=== PATIENT | female | born 1950 | race Caucasian/White ===

== ENCOUNTER 2018-09-02 19:37 | Inpatient (IN) | payer MEDICARE, OTHER ==
[~2018-09-02] VITALS: Ht 167.6 cm; Wt 133.0 kg
[~2018-09-02 19:37] MED LIST: CRESTOR40 MG PO; LOSA100T14 PO; METO-239 PO; PARO20TA3 PO
[2018-09-02 20:10] LABS: BASO # 0.1 x10^3/uL (0.0-0.2); BASO % 1 % (0-3); EOS # 0.2 x10^3/uL (0.0-0.7); EOS % 3 % (0-3); HEMATOCRIT 36.6 % (36.0-47.0); HEMOGLOBIN 11.7 g/dL (12.0-15.5); LYMPH # 1.7 x10^3/uL (1.0-4.8); LYMPH % 19 % (24-48); MEAN CORPUSCULAR HEMOGLOBIN 25 pg (25-35); MEAN CORPUSCULAR HGB CONC 32 g/dL (31-37); MEAN CORPUSCULAR VOLUME 78 fL (79-100); MONO # 0.5 x10^3/uL (0.0-1.1); MONO % 6 % (0-9); NEUT # 6.3 x10^3uL (1.8-7.7); NEUT % 71 % (31-73); PLATELET COUNT 212 x10^3/uL (140-400); RED BLOOD COUNT 4.71 x10^6/uL (3.50-5.40); RED CELL DISTRIBUTION WIDTH 16.8 % (11.5-14.5); WHITE BLOOD COUNT 8.9 x10^3/uL (4.0-11.0)
[2018-09-02 20:24] LABS: CALCIUM 9.3 mg/dL (8.5-10.1); GFR 55.3; POTASSIUM 3.8 mmol/L (3.5-5.1)
[2018-09-02 20:30] LABS: ALBUMIN 3.5 g/dL (3.4-5.0); ALBUMIN/GLOBULIN RATIO 0.8 (1.0-1.7); TOTAL BILIRUBIN 0.5 mg/dL (0.2-1.0); TOTAL PROTEIN 8.1 g/dL (6.4-8.2)
--- NOTE | 2018-09-02 20:49 | PHYS DOC ---
Past Medical History Past Medical History: Anxiety, High Cholesterol, Hypertension Past Surgical History: Hysterectomy, Other Additional Past Surgical Histo: BLADDER REPAIR, LAP BAND SURGERY Alcohol Use: None Drug Use: None Adult General Chief Complaint Chief Complaint: SHORTNESS OF BREATH [facility] HPI Patient is a 68-year-old female who presents with complaint of shortness of breath that she states has been present for probably the last 3 months but states that over the last week shortness of breath is gotten much worse so that with minimal walking she is very out of breath. She also indicates that she is out of breath just with talking. She denies chest pain. Patient does admit to history of PE in the past and states that she had a saddle embolus back in 2014. She had been on blood thinners for 2 years and had discontinued in 2016. She states that she followed up with Dr. Sadler yesterday and was scheduled for a PE study today. Patient was over in outpatient radiology and was instructed to come to the emergency room. Review of Systems Review of Systems Constitutional: Denies fever or chills [] Respiratory: Complains of cough and shortness of breath [] Cardiovascular: No additional information not addressed in HPI [] GI: Denies abdominal pain, nausea, vomiting or diarrhea [] Musculoskeletal: Denies back pain or joint pain [] Integument: Denies rash or skin lesions [] Neurologic: Denies headache, focal weakness or sensory changes [] All other systems were reviewed and found to be within normal limits, except as documented in this note. Current Medications Current Medications Current Medications Medications (Trade) Dose Ordered Sig/Regina Start Time Stop Time Status Last Admin Dose Admin Enoxaparin Sodium (Lovenox 150mg Syringe) 130 mg 1X ONCE 09/02/18 20:00 09/02/18 20:01 DC 09/02/18 20:37 130 MG Allergies Allergies Allergies Coded Allergies Type Severity Reaction Last Updated Verified Sulfa (Sulfonamide Antibiotics) Allergy Intermediate 11/26/14 Yes Tetanus Vaccines and Toxoid Allergy Intermediate 11/26/14 Yes latex Allergy Intermediate 11/26/14 Yes Physical Exam Physical Exam Constitutional: Well developed, well nourished, no acute distress, non-toxic appearance. [] HENT: Normocephalic, atraumatic, bilateral external ears normal, oropharynx moist, no oral exudates, nose normal. [] Eyes: PERRLA, EOMI, conjunctiva normal, no discharge. [] Neck: Normal range of motion, no tenderness, supple, no stridor. [] Cardiovascular: Ishaan tachycardic rate with regular rhythm[] Lungs & Thorax: Bilateral breath sounds clear to auscultation [] Abdomen: Bowel sounds normal, soft, no tenderness. [] Skin: Warm, dry, no erythema, no rash. [] Extremities: No tenderness, no cyanosis, no clubbing, ROM intact. [] Neurologic: Alert and oriented X 3, no focal deficits noted. [] Current Patient Data Lab Values Laboratory Tests Test 09/02/18 20:02 White Blood Count 8.9 x10^3/uL (4.0-11.0) Red Blood Count 4.71 x10^6/uL (3.50-5.40) Hemoglobin 11.7 g/dL (12.0-15.5) L Hematocrit 36.6 % (36.0-47.0) Mean Corpuscular Volume 78 fL (79-100) L Mean Corpuscular Hemoglobin 25 pg (25-35) Mean Corpuscular Hemoglobin Concent 32 g/dL (31-37) Red Cell Distribution Width 16.8 % (11.5-14.5) H Platelet Count 212 x10^3/uL (140-400) Neutrophils (%) (Auto) 71 % (31-73) Lymphocytes (%) (Auto) 19 % (24-48) L Monocytes (%) (Auto) 6 % (0-9) Eosinophils (%) (Auto) 3 % (0-3) Basophils (%) (Auto) 1 % (0-3) Neutrophils # (Auto) 6.3 x10^3uL (1.8-7.7) Lymphocytes # (Auto) 1.7 x10^3/uL (1.0-4.8) Monocytes # (Auto) 0.5 x10^3/uL (0.0-1.1) Eosinophils # (Auto) 0.2 x10^3/uL (0.0-0.7) Basophils # (Auto) 0.1 x10^3/uL (0.0-0.2) Sodium Level 142 mmol/L (136-145) Potassium Level 3.8 mmol/L (3.5-5.1) Chloride Level 105 mmol/L (98-107) Carbon Dioxide Level 25 mmol/L (21-32) Anion Gap 12 (6-14) Blood Urea Nitrogen 15 mg/dL (7-20) Creatinine 1.0 mg/dL (0.6-1.0) Estimated GFR (Cockcroft-Gault) 55.3 BUN/Creatinine Ratio 15 (6-20) Glucose Level 95 mg/dL (70-99) Calcium Level 9.3 mg/dL (8.5-10.1) Total Bilirubin 0.5 mg/dL (0.2-1.0) Aspartate Amino Transferase (AST) 30 U/L (15-37) Alanine Aminotransferase (ALT) 22 U/L (14-59) Alkaline Phosphatase 218 U/L (46-116) H Troponin I Quantitative 0.081 ng/mL (0.000-0.055) AY-Lcc-C-Type Natriuretic Peptide 1815 pg/mL (0-124) H Total Protein 8.1 g/dL (6.4-8.2) Albumin 3.5 g/dL (3.4-5.0) Albumin/Globulin Ratio 0.8 (1.0-1.7) L Laboratory Tests 09/02/18 20:02 Laboratory Tests 09/02/18 20:02 EKG EKG [] Interpretation Time: EKG demonstrates sinus tachycardia with rate of 101. Radiology/Procedures Radiology/Procedures [] Impressions: PROCEDURE: CT ANGIOGRAPHY CHEST Chest CTA History: Shortness of air, chest pain, history of pulmonary embolism Technique: After bolus of intravenous contrast, CT imaging was performed of the chest. Multiplanar reconstruction images to include MIP reconstruction images are submitted. Exposure: One or more of the following individualized dose reduction techniques were utilized for this examination: 1. Automated exposure control 2. Adjustment of the mA and/or kV according to patient size 3. Use of iterative reconstruction technique. Comparison: November 27, 2014 Findings: [ ] There were pulmonary emboli bilaterally on the previous exam. On this exam, there are fairly prominent left pulmonary emboli in the upper and lower lobes, also some tiny foci of the right lower and upper lobe segment subsegmental branches. Previously seen sagittal embolism is no longer visualized. Previously there were larger right pulmonary emboli no longer visualized. There is emphysema. There is no pleural or pericardial effusion or significant infiltrate. Heart is enlarged. There is gastric band. There is 4.1 cm lesion of the visualized left kidney present previously although not fully included, internal density measurements not of a simple cyst at 31 Hounsfield units, likely somewhat larger as previously estimated 3.6 cm. There is small hiatal hernia, mild wall thickening of distal esophagus. There is multilevel thoracic spondylosis. IMPRESSION: 1. There are left greater than right pulmonary emboli. There were pulmonary emboli bilaterally on previous 2015 exam although clot burden on the right significantly less than previously. The larger left emboli may be more acute/recurrent. 2. There is lesion of the left kidney not fully included although probably larger than previous 2015 exam for which ultrasound exam recommended as solid mass not excluded. 3. There is emphysema. FOR INTERNAL CODING PURPOSES Critical result: Findings discussed with Dr. Contreras at 09/02/2018 7:16 PM. RESULT CODE: (C) Electronically signed by: Faheem Prather MD (09/02/2018 7:16 PM) [facility] Course & Med Decision Making Course & Med Decision Making Pertinent Labs and Imaging studies reviewed. (See chart for details) [] Dragon Disclaimer Dragon Disclaimer This electronic medical record was generated, in whole or in part, using a voice recognition dictation system. Departure Departure Impression: Primary Impression: Pulmonary embolism Disposition: 09 ADMITTED INPATIENT Admitting Physician: Dennis Vásquez Condition: GOOD Referrals: ALIDA LONDONO MD (PCP) Problem Qualifiers Primary Impression: Pulmonary embolism Pulmonary embolism type: other Chronicity: acute Acute cor pulmonale presence: without acute cor pulmonale Qualified Codes: I26.99 - Other pulmonary embolism without acute cor pulmonale JOSE ANGEL KEATING Jr. DO Sep 02, 2018 20:49
[2018-09-02] MEDS ORDERED: fentaNYL PF VIAL 100 MCG/2 ML VIAL IV PRN (21:00)
[2018-09-02] MEDS ORDERED: ACETAMINOPHEN 325 MG TABLET. PO PRN (21:00)
[2018-09-02] MEDS ORDERED: ONDANSETRON PF 4 MG/2 ML VIAL. IV PRN (21:00)
--- NOTE | 2018-09-02 21:45 | NUR ---
PT ARRIVED FROM ER WITH STAFF X1. ON GURNEY TO ROOM 210. PT INDEPENDENT. ON BEDREST PER ORDERS. AND TO USE BEDPAN. 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 GAVE AND EXPLAINED PMC BOOKLETS. DOCUMENTED BELONGINGS IN THE EMR. PT DENIED MEDS. LATER FOUND OUT SHE USES A CREAM ON HER PSORIASES BUT DOESNT KNOW THE NAME OF IT. WENT OVER HISTORY AND ASSESSMENT COMPLETED. PT HAS PSORASIS IN MULTIPLE PLACES. BILATERAL ELBOWS PICTURES WERE TAKEN DUE TO SKIN WAS PEELED OFF IN ER SHE SAID SHE WAS NERVOUS. SHE ALSO HAS ON SCALP, IN BOTH EARS AND ON HER BUTTUCKS OF WHICH SHE WILL NOT LET THE BUTTUCKS BE SEEN. LCRN
[2018-09-02 22:58] VITALS: BP 145/84
[2018-09-03 02:52] VITALS: BP 134/78
[2018-09-03 07:02] VITALS: BP 154/86
--- NOTE | 2018-09-03 08:43 | EKG ---
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
--- NOTE | 2018-09-03 10:25 | PDOC1 ---
History and Physical Date of Admission Date of Admission DATE: 09/03/18 TIME: 10:23 Identification/Chief Complaint Chief Complaint shortness of breath that she states has been present for probably the last 3 months but states that over the last week shortness of breath is gotten much worse so that with walking she is very out of breath. . She denies chest pain. Patient does admit to history of PE , had a saddle embolus back in 2015. Past Medical History Cardiovascular: HTN, Hyperlipidemia Pulmonary: No pertinent hx CENTRAL NERVOUS SYSTEM: Other GI: No pertinent hx Heme/Onc: No pertinent hx Hepatobiliary: No pertinent hx Psych: Anxiety Musculoskeletal: Osteoarthritis Rheumatologic: No pertinent hx Infectious disease: No pertinent hx Renal/: Urinary Incontinence Endocrine: No pertinent hx Past Surgical History Past Surgical History: Other Family History Family History: Coronary Artery Disease, Other (BLLOD CLOTS, NIECE) Social History Smoke: No ALCOHOL: none Drugs: None Current Problem List Problem List Problems Medical Problems: (1) Pulmonary embolism Status: Acute Current Medications Current Medications Current Medications Enoxaparin Sodium (Lovenox 150mg Syringe) 130 mg 1X ONCE SQ Last administered on 09/02/18at 20:37; Start 09/02/18 at 20:00; Stop 09/02/18 at 20:01; Status DC Ondansetron HCl (Zofran) 4 mg PRN Q8HRS PRN IV NAUSEA/VOMITING; Start 09/02/18 at 21:00; Stop 09/03/18 at 20:59 Fentanyl Citrate (Fentanyl 2ml Vial) 25 mcg PRN Q2HRS PRN IV PAIN; Start at 21:00 Acetaminophen (Tylenol) 650 mg PRN Q4HRS PRN PO FEVER; Start 09/02/18 at 21:00 ; Stop 09/03/18 at 20:59 Apixaban (Eliquis) 10 mg BID PO ; Start 09/03/18 at 11:00; Stop 09/09/18 at 21: 01 Apixaban (Eliquis) 5 mg BID PO ; Start 09/10/18 at 09:00 Active Scripts Active Allergies Allergies: Coded Allergies: Sulfa (Sulfonamide Antibiotics) (Verified Allergy, Intermediate, 11/26/14) Tetanus Vaccines and Toxoid (Verified Allergy, Intermediate, 11/26/14) latex (Verified Allergy, Intermediate, 11/26/14) ROS Review of System Review of Systems Review of Systems Constitutional: Denies fever or chills [] Respiratory: Complains of cough and shortness of breath [] Cardiovascular: No additional information not addressed in HPI [] GI: Denies abdominal pain, nausea, vomiting or diarrhea [] Musculoskeletal: Denies back pain or joint pain [] Integument: Denies rash or skin lesions [] Neurologic: Denies headache, focal weakness or sensory changes [] 14 pt systems were reviewed and found to be within normal limits, except as documented . General: YES: Fatigue Respiratory: YES: Shortness of breath, SOB with excertion Neurological: No Behavorial Changes, No Bowel/Bladder ControlChng, No Confusion , No Dizziness, No Gait Disturbance, No Headaches, No Impaired Coord/balance, No Memory Loss, No Numbness/Tingling, No Seizures, No Speech Problems, No Tremors, No Visual Changes, No Weakness, No Other Physical Exam Physical Exam Physical Exam Physical Exam Constitutional: Well developed, well nourished, no acute distress, non-toxic appearance. [] HENT: Normocephalic, atraumatic, bilateral external ears normal, oropharynx moist, no oral exudates, nose normal. [] Eyes: PERRLA, EOMI, conjunctiva normal, no discharge. [] Neck: Normal range of motion, no tenderness, supple, no stridor. [] Cardiovascular: Ishaan tachycardic rate with regular rhythm[] Lungs & Thorax: Bilateral breath sounds clear to auscultation [] Abdomen: Bowel sounds normal, soft, no tenderness. [] Skin: Warm, dry, no erythema, no rash. [] Extremities: No tenderness, no cyanosis, no clubbing, ROM intact. [] Neurologic: Alert and oriented X 3, no focal deficits noted. [] General: Alert, Oriented X3, Cooperative, No acute distress, mild distress HEENT: Atraumatic, EOMI Lungs: Clear to auscultation, Normal air movement Heart: RRR Breasts: Not examined Abdomen: Normal bowel sounds, Soft Rectal Exam: not examined Extremities: No edema Neuro: Normal speech, Cranial nerves 3-12 NL Psych/Mental Status: Mood NL Vitals Vitals Vital Signs Date Time Temp Pulse Resp B/P (MAP) Pulse Ox O2 Delivery O2 Flow Rate FiO2 09/03/18 08:25 Nasal Cannula 2.0 09/03/18 07:02 97.9 89 17 154/86 (108) 97.9 09/03/18 02:52 96 Labs Labs Laboratory Tests Test 09/02/18 20:02 09/03/18 00:30 09/03/18 03:30 White Blood Count 8.9 x10^3/uL (4.0-11.0) Red Blood Count 4.71 x10^6/uL (3.50-5.40) Hemoglobin 11.7 g/dL (12.0-15.5) Hematocrit 36.6 % (36.0-47.0) Mean Corpuscular Volume 78 fL (79-100) Mean Corpuscular Hemoglobin 25 pg (25-35) Mean Corpuscular Hemoglobin Concent 32 g/dL (31-37) Red Cell Distribution Width 16.8 % (11.5-14.5) Platelet Count 212 x10^3/uL (140-400) Neutrophils (%) (Auto) 71 % (31-73) Lymphocytes (%) (Auto) 19 % (24-48) Monocytes (%) (Auto) 6 % (0-9) Eosinophils (%) (Auto) 3 % (0-3) Basophils (%) (Auto) 1 % (0-3) Neutrophils # (Auto) 6.3 x10^3uL (1.8-7.7) Lymphocytes # (Auto) 1.7 x10^3/uL (1.0-4.8) Monocytes # (Auto) 0.5 x10^3/uL (0.0-1.1) Eosinophils # (Auto) 0.2 x10^3/uL (0.0-0.7) Basophils # (Auto) 0.1 x10^3/uL (0.0-0.2) D-Dimer (Rolanda) 4.74 ug/mlFEU (0.00-0.50) Sodium Level 142 mmol/L (136-145) Potassium Level 3.8 mmol/L (3.5-5.1) Chloride Level 105 mmol/L (98-107) Carbon Dioxide Level 25 mmol/L (21-32) Anion Gap 12 (6-14) Blood Urea Nitrogen 15 mg/dL (7-20) Creatinine 1.0 mg/dL (0.6-1.0) Estimated GFR (Cockcroft-Gault) 55.3 BUN/Creatinine Ratio 15 (6-20) Glucose Level 95 mg/dL (70-99) Calcium Level 9.3 mg/dL (8.5-10.1) Total Bilirubin 0.5 mg/dL (0.2-1.0) Aspartate Amino Transf (AST/SGOT) 30 U/L (15-37) Alanine Aminotransferase (ALT/SGPT) 22 U/L (14-59) Alkaline Phosphatase 218 U/L (46-116) Troponin I Quantitative 0.081 ng/mL (0.000-0.055) 0.067 ng/mL (0.000-0.055) 0.054 ng/mL (0.000-0.055) ES-Vya-Q-Type Natriuretic Peptide 1815 pg/mL (0-124) Total Protein 8.1 g/dL (6.4-8.2) Albumin 3.5 g/dL (3.4-5.0) Albumin/Globulin Ratio 0.8 (1.0-1.7) Laboratory Tests Test 09/02/18 20:02 09/03/18 00:30 09/03/18 03:30 White Blood Count 8.9 x10^3/uL (4.0-11.0) Red Blood Count 4.71 x10^6/uL (3.50-5.40) Hemoglobin 11.7 g/dL (12.0-15.5) Hematocrit 36.6 % (36.0-47.0) Mean Corpuscular Volume 78 fL (79-100) Mean Corpuscular Hemoglobin 25 pg (25-35) Mean Corpuscular Hemoglobin Concent 32 g/dL (31-37) Red Cell Distribution Width 16.8 % (11.5-14.5) Platelet Count 212 x10^3/uL (140-400) Neutrophils (%) (Auto) 71 % (31-73) Lymphocytes (%) (Auto) 19 % (24-48) Monocytes (%) (Auto) 6 % (0-9) Eosinophils (%) (Auto) 3 % (0-3) Basophils (%) (Auto) 1 % (0-3) Neutrophils # (Auto) 6.3 x10^3uL (1.8-7.7) Lymphocytes # (Auto) 1.7 x10^3/uL (1.0-4.8) Monocytes # (Auto) 0.5 x10^3/uL (0.0-1.1) Eosinophils # (Auto) 0.2 x10^3/uL (0.0-0.7) Basophils # (Auto) 0.1 x10^3/uL (0.0-0.2) D-Dimer (Rolanda) 4.74 ug/mlFEU (0.00-0.50) Sodium Level 142 mmol/L (136-145) Potassium Level 3.8 mmol/L (3.5-5.1) Chloride Level 105 mmol/L (98-107) Carbon Dioxide Level 25 mmol/L (21-32) Anion Gap 12 (6-14) Blood Urea Nitrogen 15 mg/dL (7-20) Creatinine 1.0 mg/dL (0.6-1.0) Estimated GFR (Cockcroft-Gault) 55.3 BUN/Creatinine Ratio 15 (6-20) Glucose Level 95 mg/dL (70-99) Calcium Level 9.3 mg/dL (8.5-10.1) Total Bilirubin 0.5 mg/dL (0.2-1.0) Aspartate Amino Transf (AST/SGOT) 30 U/L (15-37) Alanine Aminotransferase (ALT/SGPT) 22 U/L (14-59) Alkaline Phosphatase 218 U/L (46-116) Troponin I Quantitative 0.081 ng/mL (0.000-0.055) 0.067 ng/mL (0.000-0.055) 0.054 ng/mL (0.000-0.055) MK-Ngh-R-Type Natriuretic Peptide 1815 pg/mL (0-124) Total Protein 8.1 g/dL (6.4-8.2) Albumin 3.5 g/dL (3.4-5.0) Albumin/Globulin Ratio 0.8 (1.0-1.7) Images Images REASON: chest pain, soa, hx PE PROCEDURE: CT ANGIOGRAPHY CHEST Chest CTA History: Shortness of air, chest pain, history of pulmonary embolism Technique: After bolus of intravenous contrast, CT imaging was performed of the chest. Multiplanar reconstruction images to include MIP reconstruction images are submitted. Exposure: One or more of the following individualized dose reduction techniques were utilized for this examination: 1. Automated exposure control 2. Adjustment of the mA and/or kV according to patient size 3. Use of iterative reconstruction technique. Comparison: November 27, 2014 Findings: [ ] There were pulmonary emboli bilaterally on the previous exam. On this exam, there are fairly prominent left pulmonary emboli in the upper and lower lobes, also some tiny foci of the right lower and upper lobe segment subsegmental branches. Previously seen sagittal embolism is no longer visualized. Previously there were larger right pulmonary emboli no longer visualized. There is emphysema. There is no pleural or pericardial effusion or significant infiltrate. Heart is enlarged. There is gastric band. There is 4.1 cm lesion of the visualized left kidney present previously although not fully included, internal density measurements not of a simple cyst at 31 Hounsfield units, likely somewhat larger as previously estimated 3.6 cm. There is small hiatal hernia, mild wall thickening of distal esophagus. There is multilevel thoracic spondylosis. IMPRESSION: 1. There are left greater than right pulmonary emboli. There were pulmonary emboli bilaterally on previous 2014 exam although clot burden on the right significantly less than previously. The larger left emboli may be more acute/recurrent. 2. There is lesion of the left kidney not fully included although probably larger than previous 2014 exam for which ultrasound exam recommended as solid mass not excluded. 3. There is emphysema. VTE Prophylaxis Ordered VTE Prophylaxis Devices: Yes VTE Pharmacological Prophylaxi: Yes Assessment/Plan Assessment/Plan 1. There are left greater than right pulmonary emboli. There were pulmonary emboli bilaterally on previous 2014 exam although clot burden on the right significantly less than previously. The larger left emboli are more acute/recurrent. 2. There is lesion of the left kidney not fully included although probably larger than previous 2014 exam for which ultrasound exam recommended as solid mass not excluded. 3. There is emphysema. 4. MORBID OBESITY 5. Acute hypoxic resp failure 6. MARIANGEL LIKELY NEEDS SLEEP STUDY SOON PLAN CVC ADMIT SQ LOVENOX WARFARIN DOSING VENOUS DOPPLER LEGS PENDING RENAL SONO pulm consult home meds YEARLY FLU SHOT D/W DR ORTEGA 57 MIN VISIT, CHART REVIEW, PT EXAM, > 50% of time with pt exam, chart review, pt care coordination LILLY WOLFE MD Sep 03, 2018 10:25
--- NOTE | 2018-09-03 10:45 | NUR ---
SS following for discharge planning. SS reviewed pt chart. Pt is from home with spouse and is currently requiring oxygen. No discharge needs noted at this time. SS will continue to follow for pending discharge needs.
[2018-09-03 11:00] VITALS: BP 151/74
[2018-09-03] MEDS ORDERED: APIXABAN 5 MG TABLET. PO SCH (11:00)
--- NOTE | 2018-09-03 11:00 | CONS ---
DATE OF CONSULTATION: 09/03/2018 ATTENDING PHYSICIAN: Dr. Spencer. REASON FOR CONSULTATION: Recurrent pulmonary embolism. HISTORY OF PRESENT ILLNESS: The patient is a 68-year-old morbidly obese patient with a BMI of 48. She has history of pulmonary embolism in 2014, which was unprovoked. She also had DVT at the same time involving the left lower extremity. She was treated for close to two years with anticoagulation with warfarin. The patient had resolution of the pulmonary embolism based on the last CT on 01/05/2015. 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 The patient was experiencing increased shortness of breath for the last 6 months, which progressed slowly and in last week, she had more worsening dyspnea. She had no chest pain. She states this winter, she has been not ambulatory. She has put on about 20 pounds. She was seen by Dr. Sadler in the office who ordered a CT chest and radiologist called me yesterday evening with an abnormal CT chest result, which was reviewed by me and it shows evidence of pulmonary emboli, predominantly on the left side. Previously seen sagittal embolism was no longer visible. The patient also had the past larger right-sided pulmonary emboli, which were no longer visualized. There was also a renal lesion, which was not well characterized, 4.1 cm on the left kidney. The patient was sent to the ER and she is hospitalized, she received Lovenox. The patient has no history of malignancy. She is not on any form of hormone replacement treatment. She does have a strong family history of thromboembolic disease in two nephews in the 20s and niece in the late 30s. PAST MEDICAL HISTORY: History of anxiety; dyslipidemia; hypertension; history of prior pulmonary embolism, unprovoked in 2015 and left lower extremity DVT. PAST SURGICAL HISTORY: Bladder repair and lap banding surgery. SOCIAL HISTORY: Nonsmoker. ALLERGIES: SULFA, TETANUS VACCINES AND TOXOID. MEDICATIONS: Reviewed as listed in the MRAD. REVIEW OF SYSTEMS: Twelve-point system obtained. Pertinent positives discussed in my history of present illness, otherwise noncontributory. All systems that were negative were reviewed as well. SOCIAL HISTORY: Nonsmoker, nonalcoholic. PHYSICAL EXAMINATION: VITAL SIGNS: Blood pressure 154/86, pulse ox 96% on 2 liters, afebrile. HEENT: Sclerae nonicteric. NECK: Supple. LUNGS: Clear. CARDIOVASCULAR: Regular rate and rhythm. ABDOMEN: Soft, obese. EXTREMITIES: With no pitting edema. She has some psoriasis in her upper extremities. LABORATORY DATA: Reviewed. White cell count 8.9, hemoglobin 11.7, platelets are 212. BUN 15, creatinine 1.0. Troponin level is 0.081. IMPRESSION: 1. 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 She was treated with two years with anticoagulation with warfarin. She had no known malignancy. She is not on any form of estrogens. She does have a strong family history of thromboembolic disease with 2 nephews in their 20s and one niece at age 38 had pulmonary embolism. Hypercoagulable panel per patient's history was negative in the past. Now, she comes in with recurrent pulmonary emboli. The exact timing is not so clear, but it seems like her dyspnea got worse in the last few weeks. The risk factor could be hypercoagulable state in addition underlying immobility during recent winter when she was mostly at home. She has also put on 20 pounds during this winter. She does have a strong family history of thromboembolic disease.She will be on lifelong anticoagulation. 2. Rule out recurrent deep venous thrombosis. 3. Rule out hypercoagulable state. 4. The patient has no known malignancy. 5. Mildly increased troponin level, could be related to mild RV ischemia. 6. ? left renal mass vs cyst on ct chest. d/w DR Vásquez for any further testing 7. R/O MARIANGEL RECOMMENDATIONS: 1. P atient may not be a suitable candidate for DOAC's due to high BMI. She will be on lifelong anticoagulation.Will initiate warfarin. Continue lovenox. 2. Venous Dopplers of lower extremities. 3. Obtain echocardiogram. 4. Weight loss is strongly emphasized. 5. She does have symptoms suggesting sleep apnea with daytime somnolence and she would benefit from sleep study. Discussed with Dr. Spencer./ Renal US per DR Vásquez. KAVITA ORTEGA MD DR: ARIANNA/henry JOB#: [id number] / [id number] MTDD
[2018-09-03 14:22] LABS: PROTHROMBIN TIME PATIENT 14.6 SEC (11.7-14.0)
--- NOTE | 2018-09-03 14:26 | RAD ---
Bilateral lower extremity venous duplex study 09/03/2018 10:22 AM Clinical History: Pulmonary nodules. History of DVT.. Comparison: None Technique: Using a combination of real time ultrasound imaging and color-flow and pulse Doppler imaging techniques along with graded compression and augmentation, duplex evaluation of the deep venous system of the both lower extremities was performed. Multiple images were obtained. Findings: Exam is positive for partially occlusive deep venous thrombosis involving the right popliteal and anterior parietal veins. Remaining deep veins of the right lower extremity and the left lower extremity is are negative for acute deep venous thrombosis. Impression: The exam is positive partially occlusive deep venous thrombosis involving the right popliteal and peroneal veins Electronically signed by: Kerwin Tavares MD (09/03/2018 2:23 PM) [id number]
--- NOTE | 2018-09-03 14:34 | RAD ---
Indication:DX: Renal mass seen on CT scan TECHNIQUE: Grayscale, color Doppler and spectral waveform is of the abdomen obtained. COMPARISON: CT of chest from 09/02/2018 FINDINGS: Visualized pancreas within normal limits. Pancreatic tail not visualized due to overlying bowel gas. No gallstones, pericholecystic fluid or gallbladder wall thickening. Right kidney measures 12.2 cm in length without hydronephrosis. Liver measures 15 cm in longest dimension with diffusely increased echogenicity and decreased through transmission. Main portal vein is patent. Aorta is not well visualized due to overlying bowel gas. Spleen measures 13 cm in longest dimension and is top normal in size. Left kidney measures 11.7 cm in length with a 4.0 x 3.5 x 3.5 cm anechoic lesion most likely simple cysts. CBD not visualized. IMPRESSION: 1. The left renal lesion corresponds to a simple cyst on ultrasound. 2. Hepatic steatosis. Electronically signed by: Sherman Mascorro DO (09/03/2018 2:31 PM) [facility]
--- NOTE | 2018-09-03 15:21 | NUR ---
Wound Care Pt seen for wound care consultation re: eczema. Pt assessed, pt has psoriasis over elbows, head and low back, no open wounds noted on full skin inspection. Pt uses a specific cream at home, unknown brand. WC will sign off at this time.
--- NOTE | 2018-09-03 15:21 | NUR ---
Pharmacy Warfarin Dosing Note S:Pharmacy consulted to assist with anticoagulation therapy started 09/03/18 with target INR: 2 - 3 O:TWILA LOPEZ is a 68 year old F with an acute PE LABS: Last INR: 1.2 Last HGB: 11.7 Last HCT: 36.6 Last PLT: 212 A:INR of 1.2 is below desired range. Target range for this patient is: 2 - 3 P: Warfarin dose: 10 mg Today at 1600 Bridge Therapy: Enoxaparin 1 mg/kg q12h Next INR due 09/04/18 Pharmacy anticoagulation service will continue to follow. VANNESSA ANAYA [facility], 09/03/18 [id number]
[2018-09-03 15:30] VITALS: BP 135/76
[2018-09-03] MEDS ORDERED: WARFARIN 5 MG TABLET. PO ONE (16:00)
[2018-09-03 19:45] VITALS: BP 126/63
[2018-09-03 20:07] LABS: BILIRUBIN,URINE SMALL (NEG); CLARITY,URINE CLOUDY; COLOR,URINE AMBER; NITRITE,URINE POSITIVE (NEG); PH,URINE 5.5; PROTEIN,URINE NEGATIVE (NEG-TRACE)
[2018-09-03 20:14] LABS: BACTERIA,URINE MANY /HPF (0-FEW); RBC,URINE RARE /HPF (0-2); SQUAMOUS EPITHELIAL CELL,UR MOD /LPF
[2018-09-03] MEDS ORDERED: MINERAL OIL/PETROLATUM TOPICAL CREAM 113GM JAR. TP PRN (21:00)
[2018-09-03 23:39] VITALS: BP 125/77
[2018-09-04 03:45] VITALS: BP 157/85
[2018-09-04 07:00] VITALS: BP 134/74
[2018-09-04 07:39] LABS: PROTHROMBIN TIME PATIENT 14.9 SEC (11.7-14.0)
--- NOTE | 2018-09-04 10:50 | PDOC ---
PROGRESS NOTES History of Present Illness History of Present Illness Assessment/Plan Assessment/Plan 1. There are left greater than right pulmonary emboli. There were pulmonary emboli bilaterally on previous 2015 exam although clot burden on the right significantly less than previously. The larger left emboli are more acute/recurrent. 2. There is lesion of the left kidney not fully included although probably larger than previous 2015 exam for which ultrasound exam recommended as solid mass not excluded. sono is ok 3. There is emphysema. 4. MORBID OBESITY 5. Acute hypoxic resp failure 6. MARIANGEL LIKELY/// NEEDS SLEEP STUDY SOON 7. uti PLAN CVC ADMIT SQ LOVENOX WARFARIN DOSING VENOUS DOPPLER LEGS PENDING RENAL SONO pulm consult home meds YEARLY FLU SHOT levaquin D/W DR ORTEGA 34 min visit time, pt exam, chart review, > 50% of time with pt exam, chart review, pt care coordination Vitals Vitals Vital Signs Date Time Temp Pulse Resp B/P (MAP) Pulse Ox O2 Delivery O2 Flow Rate FiO2 09/04/18 08:00 Nasal Cannula 2.0 09/04/18 07:00 98.4 70 20 134/74 (94) 94 98.4 Physical Exam General: Alert, Oriented X3, Cooperative, No acute distress, mild distress Heart: Regular rate, Normal S1, Normal S2 Lungs: Clear Abdomen: Normal bowel sounds, Soft Extremities: No clubbing, No cyanosis, No edema Skin: No significant lesion Labs LABS Laboratory Tests Test 09/03/18 13:25 09/03/18 19:43 09/04/18 07:15 Prothrombin Time 14.6 SEC (11.7-14.0) 14.9 SEC (11.7-14.0) Prothromb Time International Ratio 1.2 (0.8-1.1) 1.2 (0.8-1.1) Urine Collection Type Void Urine Color Margarita Urine Clarity Cloudy Urine pH 5.5 Urine Specific [place] >=1.030 Urine Protein Negative mg/dL (NEG-TRACE) Urine Glucose (UA) Negative mg/dL (NEG) Urine Ketones (Stick) Negative mg/dL (NEG) Urine Blood Trace (NEG) Urine Nitrite Positive (NEG) Urine Bilirubin Small (NEG) Urine Urobilinogen Dipstick 1.0 mg/dL (0.2 mg/dL) Urine Leukocyte Esterase Moderate (NEG) Urine RBC Rare /HPF (0-2) Urine WBC 11-20 /HPF (0-4) Urine Squamous Epithelial Cells Mod /LPF Urine Bacteria Many /HPF (0-FEW) Urine Mucus Mod /LPF Assessment and Plan Assessmemt and Plan Problems Medical Problems: (1) Pulmonary embolism Status: Acute Aortic Valve AoV Peak Madan. 151.7cm/s AoV VTI 34.4cm AO Peak GR. 9.2mmHg LVOT Peak Madan. 102.7cm/s AO Mean GR. 6mmHg COY (VMAX) 2.45cm2 COY (VTI) 2.20cm2 Mitral Valve MV E Velocity 63.7cm/s MV E Peak Gr. 2mmHg MV DECEL TIME 226ms MV A Velocity 91.4cm/s MV E Mean Gr. 1mmHg MV PHT 74ms E/A Ratio 0.7 MV A Duration 125ms MVA (PHT) 2.96cm2 Tricuspid Valve TR P. Velocity 176cm/s RAP ESTIMATE 3mmHg TR Peak Gr. 12mmHg RVSP 15mmHg LEFT VENTRICLE The left ventricle is normal size. There is normal left ventricular wall thickness. Left ventricle systolic function is normal. The Ejection Fraction is estimated at 50-55%. There is normal LV segmental wall motion. Tissue Doppler imaging reveals mild left ventricular diastolic dysfunction. Transmitral Doppler flow pattern is Grade I-abnormal relaxation pattern. RIGHT VENTRICLE The right ventricle is normal size. The right ventricular systolic function is normal. ATRIA The left atrium size is normal. The right atrium size is normal. The interatrial septum is not well visualized but appears intact with no evidence for an atrial septal defect or patent foramen ovale as noted on 2-D or Doppler imaging. AORTIC VALVE The aortic valve is not well visualized. Doppler and Color Flow revealed no significant aortic regurgitation. There is no significant aortic valvular stenosis. MITRAL VALVE The mitral valve is normal in structure and function. There is no mitral valve stenosis. Doppler and Color Flow revealed no mitral valve regurgitation noted. TRICUSPID VALVE The tricuspid valve is not well visualized. Doppler and Color Flow revealed trace tricuspid regurgitation. The PA pressure was estimated at 15 mmHg. There is no tricuspid valve stenosis. PULMONIC VALVE The pulmonic valve is not well visualized. Doppler and Color Flow revealed no pulmonic valvular regurgitation. There is no pulmonic valvular stenosis. GREAT VESSELS The aortic root is normal in size. Pulmonary veins not recorded. The IVC is normal in size and collapses >50% with inspiration. PERICARDIAL EFFUSION There is no evidence of significant pericardial effusion. Critical Notification Critical Value: No <Conclusion> Left ventricle systolic function is normal. The Ejection Fraction is estimated at 50-55%. There is normal LV segmental wall motion. Transmitral Doppler flow pattern is Grade I-abnormal relaxation pattern. Trace tricuspid regurgitation. The PA pressure was estimated at 15 mmHg. There is no evidence of significant pericardial effusion. DICTATED and SIGNED BY: MIRI PRITCHARD MD DATE: 09/26/15 [id number] CC: MIRI PRITCHARD MD; NOY FIGUEROA MD; BECKI BETTENCOURT Jr, MD ~ Comment Review of Relevant I have reviewed the following items nena (where applicable) has been applied. Labs Laboratory Tests Test 09/02/18 20:02 09/03/18 00:30 09/03/18 03:30 09/03/18 13:25 White Blood Count 8.9 x10^3/uL (4.0-11.0) Red Blood Count 4.71 x10^6/uL (3.50-5.40) Hemoglobin 11.7 g/dL (12.0-15.5) Hematocrit 36.6 % (36.0-47.0) Mean Corpuscular Volume 78 fL (79-100) Mean Corpuscular Hemoglobin 25 pg (25-35) Mean Corpuscular Hemoglobin Concent 32 g/dL (31-37) Red Cell Distribution Width 16.8 % (11.5-14.5) Platelet Count 212 x10^3/uL (140-400) Neutrophils (%) (Auto) 71 % (31-73) Lymphocytes (%) (Auto) 19 % (24-48) Monocytes (%) (Auto) 6 % (0-9) Eosinophils (%) (Auto) 3 % (0-3) Basophils (%) (Auto) 1 % (0-3) Neutrophils # (Auto) 6.3 x10^3uL (1.8-7.7) Lymphocytes # (Auto) 1.7 x10^3/uL (1.0-4.8) Monocytes # (Auto) 0.5 x10^3/uL (0.0-1.1) Eosinophils # (Auto) 0.2 x10^3/uL (0.0-0.7) Basophils # (Auto) 0.1 x10^3/uL (0.0-0.2) D-Dimer (Rolanda) 4.74 ug/mlFEU (0.00-0.50) Sodium Level 142 mmol/L (136-145) Potassium Level 3.8 mmol/L (3.5-5.1) Chloride Level 105 mmol/L (98-107) Carbon Dioxide Level 25 mmol/L (21-32) Anion Gap 12 (6-14) Blood Urea Nitrogen 15 mg/dL (7-20) Creatinine 1.0 mg/dL (0.6-1.0) Estimated GFR (Cockcroft-Gault) 55.3 BUN/Creatinine Ratio 15 (6-20) Glucose Level 95 mg/dL (70-99) Calcium Level 9.3 mg/dL (8.5-10.1) Total Bilirubin 0.5 mg/dL (0.2-1.0) Aspartate Amino Transf (AST/SGOT) 30 U/L (15-37) Alanine Aminotransferase (ALT/SGPT) 22 U/L (14-59) Alkaline Phosphatase 218 U/L (46-116) Troponin I Quantitative 0.081 ng/mL (0.000-0.055) 0.067 ng/mL (0.000-0.055) 0.054 ng/mL (0.000-0.055) WP-Cht-P-Type Natriuretic Peptide 1815 pg/mL (0-124) Total Protein 8.1 g/dL (6.4-8.2) Albumin 3.5 g/dL (3.4-5.0) Albumin/Globulin Ratio 0.8 (1.0-1.7) Prothrombin Time 14.6 SEC (11.7-14.0) Prothromb Time International Ratio 1.2 (0.8-1.1) Test 09/03/18 19:43 09/04/18 07:15 Urine Collection Type Void Urine Color Margarita Urine Clarity Cloudy Urine pH 5.5 Urine Specific [place] >=1.030 Urine Protein Negative mg/dL (NEG-TRACE) Urine Glucose (UA) Negative mg/dL (NEG) Urine Ketones (Stick) Negative mg/dL (NEG) Urine Blood Trace (NEG) Urine Nitrite Positive (NEG) Urine Bilirubin Small (NEG) Urine Urobilinogen Dipstick 1.0 mg/dL (0.2 mg/dL) Urine Leukocyte Esterase Moderate (NEG) Urine RBC Rare /HPF (0-2) Urine WBC 11-20 /HPF (0-4) Urine Squamous Epithelial Cells Mod /LPF Urine Bacteria Many /HPF (0-FEW) Urine Mucus Mod /LPF Prothrombin Time 14.9 SEC (11.7-14.0) Prothromb Time International Ratio 1.2 (0.8-1.1) Laboratory Tests Test 09/03/18 13:25 09/03/18 19:43 09/04/18 07:15 Prothrombin Time 14.6 SEC (11.7-14.0) 14.9 SEC (11.7-14.0) Prothromb Time International Ratio 1.2 (0.8-1.1) 1.2 (0.8-1.1) Urine Collection Type Void Urine Color Margarita Urine Clarity Cloudy Urine pH 5.5 Urine Specific [place] >=1.030 Urine Protein Negative mg/dL (NEG-TRACE) Urine Glucose (UA) Negative mg/dL (NEG) Urine Ketones (Stick) Negative mg/dL (NEG) Urine Blood Trace (NEG) Urine Nitrite Positive (NEG) Urine Bilirubin Small (NEG) Urine Urobilinogen Dipstick 1.0 mg/dL (0.2 mg/dL) Urine Leukocyte Esterase Moderate (NEG) Urine RBC Rare /HPF (0-2) Urine WBC 11-20 /HPF (0-4) Urine Squamous Epithelial Cells Mod /LPF Urine Bacteria Many /HPF (0-FEW) Urine Mucus Mod /LPF Medications Current Medications Enoxaparin Sodium (Lovenox 150mg Syringe) 130 mg 1X ONCE SQ Last administered on 09/02/18at 20:37; Start 09/02/18 at 20:00; Stop 09/02/18 at 20:01; Status DC Ondansetron HCl (Zofran) 4 mg PRN Q8HRS PRN IV NAUSEA/VOMITING; Start 09/02/18 at 21:00; Stop 09/03/18 at 20:59; Status DC Fentanyl Citrate (Fentanyl 2ml Vial) 25 mcg PRN Q2HRS PRN IV PAIN; Start at 21:00 Acetaminophen (Tylenol) 650 mg PRN Q4HRS PRN PO FEVER; Start 09/02/18 at 21:00 ; Stop 09/03/18 at 20:59; Status DC Apixaban (Eliquis) 10 mg BID PO ; Start 09/03/18 at 11:00; Stop 09/03/18 at 11: 09; Status DC Apixaban (Eliquis) 5 mg BID PO ; Start 09/10/18 at 09:00; Stop 09/10/18 at 09:00 ; Status DC Enoxaparin Sodium (Lovenox 150mg Syringe) 140 mg Q12HR SQ Last administered on 09/04/18at 08:23; Start 09/03/18 at 11:30 Warfarin Sodium (Coumadin Per Pharmacy) 1 each PRN DAILY PRN MC SEE COMMENTS Last administered on 09/04/18at 10:46; Start 09/03/18 at 13:00 Warfarin Sodium (Coumadin) 10 mg 1X WARF ONCE PO Last administered on at 17:36; Start 09/03/18 at 16:00; Stop 09/03/18 at 16:01; Status DC Multi-Ingred Cream/Lotion/Oil/ Oint (Hydrocerin Cream) 1 deloris PRN BID PRN TP DRY SKIN / SCALING; Start 09/03/18 at 21:00 Levofloxacin/ Dextrose 100 ml @ 100 mls/hr Q24H IV Last administered on at 20:37; Start 09/03/18 at 21:00 Warfarin Sodium (Coumadin) 7.5 mg 1X WARF ONCE PO ; Start 09/04/18 at 16:00; Stop 09/04/18 at 16:01 Active Scripts Active Vitals/I & O Vital Sign - Last 24 Hours 09/03/18 09/03/18 09/03/18 09/03/18 11:00 15:30 19:25 19:45 Temp 97.9 99.3 98.2 97.9 99.3 98.2 Pulse 91 97 92 Resp 30 24 28 B/P (MAP) 151/74 (99) 135/76 (95) 126/63 (84) Pulse Ox 98 99 96 O2 Delivery Nasal Cannula Nasal Cannula Nasal Cannula Nasal Cannula O2 Flow Rate 2.0 2.0 2.0 2.0 3/22/19 3/23/19 3/23/19 3/23/19 23:39 03:45 07:00 08:00 Temp 98.6 98.1 98.4 98.6 98.1 98.4 Pulse 94 92 70 Resp 24 24 20 B/P (MAP) 125/77 (93) 157/85 (109) 134/74 (94) Pulse Ox 94 96 94 O2 Delivery Nasal Cannula Nasal Cannula Nasal Cannula Nasal Cannula O2 Flow Rate 2.0 2.0 2.0 2.0 Intake and Output 09/03/18 09/03/18 09/04/18 14:59 22:59 06:59 Intake Total 150 ml 100 ml Output Total 300 ml Balance 150 ml -200 ml LILLY WOLFE MD Sep 04, 2018 10:50
[2018-09-04 11:00] VITALS: BP 132/72
--- NOTE | 2018-09-04 11:00 | PDOC ---
PULMONARY PROGRESS NOTES Subjective feels better Vitals Vital Signs Date Time Temp Pulse Resp B/P (MAP) Pulse Ox O2 Delivery O2 Flow Rate FiO2 09/04/18 08:00 Nasal Cannula 2.0 09/04/18 07:00 98.4 70 20 134/74 (94) 94 98.4 General: Alert, Oriented X4, No acute distress Lungs: Clear Cardiovascular: S1, S2 Abdomen: Soft, Non-tender Extremities: No Edema Skin: Warm Labs Laboratory Tests Test 09/02/18 20:02 09/03/18 00:30 09/03/18 03:30 09/03/18 13:25 White Blood Count 8.9 x10^3/uL (4.0-11.0) Red Blood Count 4.71 x10^6/uL (3.50-5.40) Hemoglobin 11.7 g/dL (12.0-15.5) Hematocrit 36.6 % (36.0-47.0) Mean Corpuscular Volume 78 fL (79-100) Mean Corpuscular Hemoglobin 25 pg (25-35) Mean Corpuscular Hemoglobin Concent 32 g/dL (31-37) Red Cell Distribution Width 16.8 % (11.5-14.5) Platelet Count 212 x10^3/uL (140-400) Neutrophils (%) (Auto) 71 % (31-73) Lymphocytes (%) (Auto) 19 % (24-48) Monocytes (%) (Auto) 6 % (0-9) Eosinophils (%) (Auto) 3 % (0-3) Basophils (%) (Auto) 1 % (0-3) Neutrophils # (Auto) 6.3 x10^3uL (1.8-7.7) Lymphocytes # (Auto) 1.7 x10^3/uL (1.0-4.8) Monocytes # (Auto) 0.5 x10^3/uL (0.0-1.1) Eosinophils # (Auto) 0.2 x10^3/uL (0.0-0.7) Basophils # (Auto) 0.1 x10^3/uL (0.0-0.2) D-Dimer (Rolanda) 4.74 ug/mlFEU (0.00-0.50) Sodium Level 142 mmol/L (136-145) Potassium Level 3.8 mmol/L (3.5-5.1) Chloride Level 105 mmol/L (98-107) Carbon Dioxide Level 25 mmol/L (21-32) Anion Gap 12 (6-14) Blood Urea Nitrogen 15 mg/dL (7-20) Creatinine 1.0 mg/dL (0.6-1.0) Estimated GFR (Cockcroft-Gault) 55.3 BUN/Creatinine Ratio 15 (6-20) Glucose Level 95 mg/dL (70-99) Calcium Level 9.3 mg/dL (8.5-10.1) Total Bilirubin 0.5 mg/dL (0.2-1.0) Aspartate Amino Transf (AST/SGOT) 30 U/L (15-37) Alanine Aminotransferase (ALT/SGPT) 22 U/L (14-59) Alkaline Phosphatase 218 U/L (46-116) Troponin I Quantitative 0.081 ng/mL (0.000-0.055) 0.067 ng/mL (0.000-0.055) 0.054 ng/mL (0.000-0.055) CT-Pxz-E-Type Natriuretic Peptide 1815 pg/mL (0-124) Total Protein 8.1 g/dL (6.4-8.2) Albumin 3.5 g/dL (3.4-5.0) Albumin/Globulin Ratio 0.8 (1.0-1.7) Prothrombin Time 14.6 SEC (11.7-14.0) Prothromb Time International Ratio 1.2 (0.8-1.1) Test 09/03/18 19:43 09/04/18 07:15 Urine Collection Type Void Urine Color Margarita Urine Clarity Cloudy Urine pH 5.5 Urine Specific [place] >=1.030 Urine Protein Negative mg/dL (NEG-TRACE) Urine Glucose (UA) Negative mg/dL (NEG) Urine Ketones (Stick) Negative mg/dL (NEG) Urine Blood Trace (NEG) Urine Nitrite Positive (NEG) Urine Bilirubin Small (NEG) Urine Urobilinogen Dipstick 1.0 mg/dL (0.2 mg/dL) Urine Leukocyte Esterase Moderate (NEG) Urine RBC Rare /HPF (0-2) Urine WBC 11-20 /HPF (0-4) Urine Squamous Epithelial Cells Mod /LPF Urine Bacteria Many /HPF (0-FEW) Urine Mucus Mod /LPF Prothrombin Time 14.9 SEC (11.7-14.0) Prothromb Time International Ratio 1.2 (0.8-1.1) Laboratory Tests Test 09/03/18 13:25 09/03/18 19:43 09/04/18 07:15 Prothrombin Time 14.6 SEC (11.7-14.0) 14.9 SEC (11.7-14.0) Prothromb Time International Ratio 1.2 (0.8-1.1) 1.2 (0.8-1.1) Urine Collection Type Void Urine Color Margarita Urine Clarity Cloudy Urine pH 5.5 Urine Specific [place] >=1.030 Urine Protein Negative mg/dL (NEG-TRACE) Urine Glucose (UA) Negative mg/dL (NEG) Urine Ketones (Stick) Negative mg/dL (NEG) Urine Blood Trace (NEG) Urine Nitrite Positive (NEG) Urine Bilirubin Small (NEG) Urine Urobilinogen Dipstick 1.0 mg/dL (0.2 mg/dL) Urine Leukocyte Esterase Moderate (NEG) Urine RBC Rare /HPF (0-2) Urine WBC 11-20 /HPF (0-4) Urine Squamous Epithelial Cells Mod /LPF Urine Bacteria Many /HPF (0-FEW) Urine Mucus Mod /LPF Medications Active Scripts Medications Dose Route/Sig Max Daily Dose Days Date Category Impression . 1. 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 She was treated with two years with anticoagulation with warfarin. She had no known malignancy. She is not on any form of estrogens. She does have a strong family history of thromboembolic disease with 2 nephews in their 20s and one niece at age 38 had pulmonary embolism.( Factor V mutation) Hypercoagulable panel per patient's history was negative in the past. Now, she comes in with recurrent pulmonary emboli. The exact timing is not so clear, but it seems like her dyspnea got worse in the last few weeks. The risk factor could be hypercoagulable state in addition underlying immobility during recent winter when she was mostly at home. She has also put on 20 pounds during this winter. .She will be on lifelong anticoagulation. 2. Right lower deep venous thrombosis. 3. Rule out hypercoagulable state. 4. The patient has no known malignancy. 5. Mildly increased troponin level, could be related to mild RV ischemia. 6. ? left renal mass vs cyst on ct chest. US neg 7. R/O MARIANGEL Plan . 1. Patient not be a suitable candidate for DOAC's due to high BMI. She will be on lifelong anticoagulation.Will initiate warfarin. Continue lovenox till INR therapeutic. Once she looses wt, she can be on Oral Eliquis in future 2. Venous Dopplers of lower extremities reviewed. 3. Obtain echocardiogram. 4. Weight loss is strongly emphasized. 5. She does have symptoms suggesting sleep apnea with daytime somnolence and she would benefit from sleep study. KAVITA ORTEGA MD Sep 04, 2018 11:00
[2018-09-04] MEDS: LACTOBACILLUS RHAMNOSUS GG 1 CAPSULE. PO SCH ×2 (12:58→21:02)
[2018-09-04 15:00] VITALS: BP 136/80
[2018-09-04] MEDS ORDERED: WARFARIN 7.5 MG TABLET. PO ONE (16:00)
[2018-09-04 19:50] VITALS: BP 146/77
[2018-09-04] MEDS: CALCIUM CARBONATE 500 MG TAB.CHEW PO PRN (20:07)
[2018-09-04 23:03] VITALS: BP 134/76
[2018-09-05] VITALS (7 sets, daily range): BP systolic 137–175; BP diastolic 75–92
[2018-09-05 06:34] LABS: BASO # 0.1 x10^3/uL (0.0-0.2); BASO % 1 % (0-3); EOS # 0.2 x10^3/uL (0.0-0.7); EOS % 5 % (0-3); HEMATOCRIT 32.3 % (36.0-47.0); HEMOGLOBIN 10.6 g/dL (12.0-15.5); LYMPH # 1.3 x10^3/uL (1.0-4.8); LYMPH % 24 % (24-48); MEAN CORPUSCULAR HEMOGLOBIN 26 pg (25-35); MEAN CORPUSCULAR HGB CONC 33 g/dL (31-37); MEAN CORPUSCULAR VOLUME 78 fL (79-100); MONO # 0.3 x10^3/uL (0.0-1.1); MONO % 6 % (0-9); NEUT # 3.4 x10^3uL (1.8-7.7); NEUT % 64 % (31-73); PLATELET COUNT 181 x10^3/uL (140-400); RED BLOOD COUNT 4.14 x10^6/uL (3.50-5.40); RED CELL DISTRIBUTION WIDTH 16.3 % (11.5-14.5); WHITE BLOOD COUNT 5.2 x10^3/uL (4.0-11.0)
[2018-09-05 06:52] LABS: CALCIUM 8.8 mg/dL (8.5-10.1); CREATININE 0.7 mg/dL (0.6-1.0); GFR 83.5
[2018-09-05] MEDS: LACTOBACILLUS RHAMNOSUS GG 1 CAPSULE. PO SCH ×2 (07:36→20:53)
[2018-09-05] MEDS: CALCIUM CARBONATE 500 MG TAB.CHEW PO PRN (09:20)
[2018-09-05 09:27] LABS: PROTHROMBIN TIME PATIENT 15.9 SEC (11.7-14.0)
--- NOTE | 2018-09-05 09:31 | PDOC ---
PULMONARY PROGRESS NOTES Subjective feels better Vitals Vital Signs Date Time Temp Pulse Resp B/P (MAP) Pulse Ox O2 Delivery O2 Flow Rate FiO2 09/05/18 07:33 98.4 86 18 148/87 (107) 95 Room Air 98.4 09/04/18 20:05 2.0 General: Alert, Oriented X4, No acute distress Lungs: Clear Cardiovascular: S1, S2 Abdomen: Soft, Non-tender Extremities: No Edema Skin: Warm Labs Laboratory Tests Test 09/03/18 13:25 09/03/18 19:43 09/04/18 07:15 09/04/18 12:39 Prothrombin Time 14.6 SEC (11.7-14.0) 14.9 SEC (11.7-14.0) Prothromb Time International Ratio 1.2 (0.8-1.1) 1.2 (0.8-1.1) Urine Collection Type Void Urine Color Margarita Urine Clarity Cloudy Urine pH 5.5 Urine Specific [place] >=1.030 Urine Protein Negative mg/dL (NEG-TRACE) Urine Glucose (UA) Negative mg/dL (NEG) Urine Ketones (Stick) Negative mg/dL (NEG) Urine Blood Trace (NEG) Urine Nitrite Positive (NEG) Urine Bilirubin Small (NEG) Urine Urobilinogen Dipstick 1.0 mg/dL (0.2 mg/dL) Urine Leukocyte Esterase Moderate (NEG) Urine RBC Rare /HPF (0-2) Urine WBC 11-20 /HPF (0-4) Urine Squamous Epithelial Cells Mod /LPF Urine Bacteria Many /HPF (0-FEW) Urine Mucus Mod /LPF Low Molecular Weight Heparin 1.34 IU/mL Test 09/05/18 05:55 White Blood Count 5.2 x10^3/uL (4.0-11.0) Red Blood Count 4.14 x10^6/uL (3.50-5.40) Hemoglobin 10.6 g/dL (12.0-15.5) Hematocrit 32.3 % (36.0-47.0) Mean Corpuscular Volume 78 fL (79-100) Mean Corpuscular Hemoglobin 26 pg (25-35) Mean Corpuscular Hemoglobin Concent 33 g/dL (31-37) Red Cell Distribution Width 16.3 % (11.5-14.5) Platelet Count 181 x10^3/uL (140-400) Neutrophils (%) (Auto) 64 % (31-73) Lymphocytes (%) (Auto) 24 % (24-48) Monocytes (%) (Auto) 6 % (0-9) Eosinophils (%) (Auto) 5 % (0-3) Basophils (%) (Auto) 1 % (0-3) Neutrophils # (Auto) 3.4 x10^3uL (1.8-7.7) Lymphocytes # (Auto) 1.3 x10^3/uL (1.0-4.8) Monocytes # (Auto) 0.3 x10^3/uL (0.0-1.1) Eosinophils # (Auto) 0.2 x10^3/uL (0.0-0.7) Basophils # (Auto) 0.1 x10^3/uL (0.0-0.2) Sodium Level 141 mmol/L (136-145) Potassium Level 4.0 mmol/L (3.5-5.1) Chloride Level 106 mmol/L (98-107) Carbon Dioxide Level 26 mmol/L (21-32) Anion Gap 9 (6-14) Blood Urea Nitrogen 10 mg/dL (7-20) Creatinine 0.7 mg/dL (0.6-1.0) Estimated GFR (Cockcroft-Gault) 83.5 Glucose Level 105 mg/dL (70-99) Calcium Level 8.8 mg/dL (8.5-10.1) Laboratory Tests Test 09/04/18 12:39 09/05/18 05:55 Low Molecular Weight Heparin 1.34 IU/mL White Blood Count 5.2 x10^3/uL (4.0-11.0) Red Blood Count 4.14 x10^6/uL (3.50-5.40) Hemoglobin 10.6 g/dL (12.0-15.5) Hematocrit 32.3 % (36.0-47.0) Mean Corpuscular Volume 78 fL (79-100) Mean Corpuscular Hemoglobin 26 pg (25-35) Mean Corpuscular Hemoglobin Concent 33 g/dL (31-37) Red Cell Distribution Width 16.3 % (11.5-14.5) Platelet Count 181 x10^3/uL (140-400) Neutrophils (%) (Auto) 64 % (31-73) Lymphocytes (%) (Auto) 24 % (24-48) Monocytes (%) (Auto) 6 % (0-9) Eosinophils (%) (Auto) 5 % (0-3) Basophils (%) (Auto) 1 % (0-3) Neutrophils # (Auto) 3.4 x10^3uL (1.8-7.7) Lymphocytes # (Auto) 1.3 x10^3/uL (1.0-4.8) Monocytes # (Auto) 0.3 x10^3/uL (0.0-1.1) Eosinophils # (Auto) 0.2 x10^3/uL (0.0-0.7) Basophils # (Auto) 0.1 x10^3/uL (0.0-0.2) Sodium Level 141 mmol/L (136-145) Potassium Level 4.0 mmol/L (3.5-5.1) Chloride Level 106 mmol/L (98-107) Carbon Dioxide Level 26 mmol/L (21-32) Anion Gap 9 (6-14) Blood Urea Nitrogen 10 mg/dL (7-20) Creatinine 0.7 mg/dL (0.6-1.0) Estimated GFR (Cockcroft-Gault) 83.5 Glucose Level 105 mg/dL (70-99) Calcium Level 8.8 mg/dL (8.5-10.1) Medications Active Scripts Medications Dose Route/Sig Max Daily Dose Days Date Category Impression . 1. 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 She was treated with two years with anticoagulation with warfarin. She had no known malignancy. She is not on any form of estrogens. She does have a strong family history of thromboembolic disease with 2 nephews in their 20s and one niece at age 38 had pulmonary embolism.( Factor V mutation) Hypercoagulable panel per patient's history was negative in the past. Now, she comes in with recurrent pulmonary emboli. The exact timing is not so clear, but it seems like her dyspnea got worse in the last few weeks. The risk factor could be hypercoagulable state in addition underlying immobility during recent winter when she was mostly at home. She has also put on 20 pounds during this winter. .She will be on lifelong anticoagulation. 2. Right lower deep venous thrombosis. 3. Rule out hypercoagulable state. 4. The patient has no known malignancy. 5. Mildly increased troponin level, could be related to mild RV ischemia. 6. ? left renal mass vs cyst on ct chest. US neg 7. R/O MARIANGEL Plan . 1. Patient not be a suitable candidate for DOAC's due to high BMI. She will be on lifelong anticoagulation. initiated on warfarin. Continue lovenox till INR therapeutic. Once she looses sig wt, she can be on Oral Eliquis in future 2. Venous Dopplers of lower extremities reviewed. 3. Obtain echocardiogram. 4. Weight loss is strongly emphasized. 5. She does have symptoms suggesting sleep apnea with daytime somnolence and she would benefit from sleep study. KAVITA ORTEGA MD Sep 05, 2018 09:31
--- NOTE | 2018-09-05 11:11 | PDOC ---
PROGRESS NOTES History of Present Illness History of Present Illness Assessment/Plan Assessment/Plan 1. There are left greater than right pulmonary emboli. There were pulmonary emboli bilaterally on previous 2015 exam although clot burden on the right significantly less than previously. The larger left emboli are more acute/recurrent. 2. There is lesion of the left kidney not fully included although probably larger than previous 2015 exam for which ultrasound exam recommended as solid mass not excluded. sono is ok 3. There is emphysema. 4. MORBID OBESITY 5. Acute hypoxic resp failure 6. MARIANGEL LIKELY/// NEEDS SLEEP STUDY SOON 7. uti PLAN 12 MG COUMADIN PO X 1 09/05 CVC ADMIT SQ LOVENOX WARFARIN DOSING VENOUS DOPPLER LEGS PENDING RENAL SONO pulm consult home meds YEARLY FLU SHOT levaquin 31 min visit time, pt exam, chart review, > 50% of time with pt exam, chart review, pt care coordination Vitals Vitals Vital Signs Date Time Temp Pulse Resp B/P (MAP) Pulse Ox O2 Delivery O2 Flow Rate FiO2 09/05/18 08:00 Nasal Cannula 2.0 09/05/18 07:33 98.4 86 18 148/87 (107) 95 98.4 Physical Exam General: Alert, Oriented X3, Cooperative, No acute distress, mild distress Heart: Regular rate, Normal S1, Normal S2 Lungs: Clear Abdomen: Normal bowel sounds, Soft Extremities: No clubbing, No cyanosis, No edema Skin: No significant lesion Labs LABS Laboratory Tests Test 09/04/18 12:39 09/05/18 05:55 Low Molecular Weight Heparin 1.34 IU/mL White Blood Count 5.2 x10^3/uL (4.0-11.0) Red Blood Count 4.14 x10^6/uL (3.50-5.40) Hemoglobin 10.6 g/dL (12.0-15.5) Hematocrit 32.3 % (36.0-47.0) Mean Corpuscular Volume 78 fL (79-100) Mean Corpuscular Hemoglobin 26 pg (25-35) Mean Corpuscular Hemoglobin Concent 33 g/dL (31-37) Red Cell Distribution Width 16.3 % (11.5-14.5) Platelet Count 181 x10^3/uL (140-400) Neutrophils (%) (Auto) 64 % (31-73) Lymphocytes (%) (Auto) 24 % (24-48) Monocytes (%) (Auto) 6 % (0-9) Eosinophils (%) (Auto) 5 % (0-3) Basophils (%) (Auto) 1 % (0-3) Neutrophils # (Auto) 3.4 x10^3uL (1.8-7.7) Lymphocytes # (Auto) 1.3 x10^3/uL (1.0-4.8) Monocytes # (Auto) 0.3 x10^3/uL (0.0-1.1) Eosinophils # (Auto) 0.2 x10^3/uL (0.0-0.7) Basophils # (Auto) 0.1 x10^3/uL (0.0-0.2) Prothrombin Time 15.9 SEC (11.7-14.0) Prothromb Time International Ratio 1.3 (0.8-1.1) Sodium Level 141 mmol/L (136-145) Potassium Level 4.0 mmol/L (3.5-5.1) Chloride Level 106 mmol/L (98-107) Carbon Dioxide Level 26 mmol/L (21-32) Anion Gap 9 (6-14) Blood Urea Nitrogen 10 mg/dL (7-20) Creatinine 0.7 mg/dL (0.6-1.0) Estimated GFR (Cockcroft-Gault) 83.5 Glucose Level 105 mg/dL (70-99) Calcium Level 8.8 mg/dL (8.5-10.1) Assessment and Plan Assessmemt and Plan Problems Medical Problems: (1) Pulmonary embolism Status: Acute Comment Review of Relevant I have reviewed the following items nena (where applicable) has been applied. Labs Laboratory Tests Test 09/03/18 13:25 09/03/18 19:43 09/04/18 07:15 09/04/18 12:39 Prothrombin Time 14.6 SEC (11.7-14.0) 14.9 SEC (11.7-14.0) Prothromb Time International Ratio 1.2 (0.8-1.1) 1.2 (0.8-1.1) Urine Collection Type Void Urine Color Margarita Urine Clarity Cloudy Urine pH 5.5 Urine Specific Sophia >=1.030 Urine Protein Negative mg/dL (NEG-TRACE) Urine Glucose (UA) Negative mg/dL (NEG) Urine Ketones (Stick) Negative mg/dL (NEG) Urine Blood Trace (NEG) Urine Nitrite Positive (NEG) Urine Bilirubin Small (NEG) Urine Urobilinogen Dipstick 1.0 mg/dL (0.2 mg/dL) Urine Leukocyte Esterase Moderate (NEG) Urine RBC Rare /HPF (0-2) Urine WBC 11-20 /HPF (0-4) Urine Squamous Epithelial Cells Mod /LPF Urine Bacteria Many /HPF (0-FEW) Urine Mucus Mod /LPF Low Molecular Weight Heparin 1.34 IU/mL Test 09/05/18 05:55 White Blood Count 5.2 x10^3/uL (4.0-11.0) Red Blood Count 4.14 x10^6/uL (3.50-5.40) Hemoglobin 10.6 g/dL (12.0-15.5) Hematocrit 32.3 % (36.0-47.0) Mean Corpuscular Volume 78 fL (79-100) Mean Corpuscular Hemoglobin 26 pg (25-35) Mean Corpuscular Hemoglobin Concent 33 g/dL (31-37) Red Cell Distribution Width 16.3 % (11.5-14.5) Platelet Count 181 x10^3/uL (140-400) Neutrophils (%) (Auto) 64 % (31-73) Lymphocytes (%) (Auto) 24 % (24-48) Monocytes (%) (Auto) 6 % (0-9) Eosinophils (%) (Auto) 5 % (0-3) Basophils (%) (Auto) 1 % (0-3) Neutrophils # (Auto) 3.4 x10^3uL (1.8-7.7) Lymphocytes # (Auto) 1.3 x10^3/uL (1.0-4.8) Monocytes # (Auto) 0.3 x10^3/uL (0.0-1.1) Eosinophils # (Auto) 0.2 x10^3/uL (0.0-0.7) Basophils # (Auto) 0.1 x10^3/uL (0.0-0.2) Prothrombin Time 15.9 SEC (11.7-14.0) Prothromb Time International Ratio 1.3 (0.8-1.1) Sodium Level 141 mmol/L (136-145) Potassium Level 4.0 mmol/L (3.5-5.1) Chloride Level 106 mmol/L (98-107) Carbon Dioxide Level 26 mmol/L (21-32) Anion Gap 9 (6-14) Blood Urea Nitrogen 10 mg/dL (7-20) Creatinine 0.7 mg/dL (0.6-1.0) Estimated GFR (Cockcroft-Gault) 83.5 Glucose Level 105 mg/dL (70-99) Calcium Level 8.8 mg/dL (8.5-10.1) Laboratory Tests Test 09/04/18 12:39 09/05/18 05:55 Low Molecular Weight Heparin 1.34 IU/mL White Blood Count 5.2 x10^3/uL (4.0-11.0) Red Blood Count 4.14 x10^6/uL (3.50-5.40) Hemoglobin 10.6 g/dL (12.0-15.5) Hematocrit 32.3 % (36.0-47.0) Mean Corpuscular Volume 78 fL (79-100) Mean Corpuscular Hemoglobin 26 pg (25-35) Mean Corpuscular Hemoglobin Concent 33 g/dL (31-37) Red Cell Distribution Width 16.3 % (11.5-14.5) Platelet Count 181 x10^3/uL (140-400) Neutrophils (%) (Auto) 64 % (31-73) Lymphocytes (%) (Auto) 24 % (24-48) Monocytes (%) (Auto) 6 % (0-9) Eosinophils (%) (Auto) 5 % (0-3) Basophils (%) (Auto) 1 % (0-3) Neutrophils # (Auto) 3.4 x10^3uL (1.8-7.7) Lymphocytes # (Auto) 1.3 x10^3/uL (1.0-4.8) Monocytes # (Auto) 0.3 x10^3/uL (0.0-1.1) Eosinophils # (Auto) 0.2 x10^3/uL (0.0-0.7) Basophils # (Auto) 0.1 x10^3/uL (0.0-0.2) Prothrombin Time 15.9 SEC (11.7-14.0) Prothromb Time International Ratio 1.3 (0.8-1.1) Sodium Level 141 mmol/L (136-145) Potassium Level 4.0 mmol/L (3.5-5.1) Chloride Level 106 mmol/L (98-107) Carbon Dioxide Level 26 mmol/L (21-32) Anion Gap 9 (6-14) Blood Urea Nitrogen 10 mg/dL (7-20) Creatinine 0.7 mg/dL (0.6-1.0) Estimated GFR (Cockcroft-Gault) 83.5 Glucose Level 105 mg/dL (70-99) Calcium Level 8.8 mg/dL (8.5-10.1) Medications Current Medications Enoxaparin Sodium (Lovenox 150mg Syringe) 130 mg 1X ONCE SQ Last administered on 09/02/18at 20:37; Start 09/02/18 at 20:00; Stop 09/02/18 at 20:01; Status DC Ondansetron HCl (Zofran) 4 mg PRN Q8HRS PRN IV NAUSEA/VOMITING; Start 09/02/18 at 21:00; Stop 09/03/18 at 20:59; Status DC Fentanyl Citrate (Fentanyl 2ml Vial) 25 mcg PRN Q2HRS PRN IV PAIN; Start at 21:00 Acetaminophen (Tylenol) 650 mg PRN Q4HRS PRN PO FEVER; Start 09/02/18 at 21:00 ; Stop 09/03/18 at 20:59; Status DC Apixaban (Eliquis) 10 mg BID PO ; Start 09/03/18 at 11:00; Stop 09/03/18 at 11: 09; Status DC Apixaban (Eliquis) 5 mg BID PO ; Start 09/10/18 at 09:00; Stop 09/10/18 at 09:00 ; Status DC Enoxaparin Sodium (Lovenox 150mg Syringe) 140 mg Q12HR SQ Last administered on 09/04/18at 08:23; Start 09/03/18 at 11:30; Stop 09/04/18 at 14:59; Status DC Warfarin Sodium (Coumadin Per Pharmacy) 1 each PRN DAILY PRN MC SEE COMMENTS Last administered on 09/04/18at 15:07; Start 09/03/18 at 13:00 Warfarin Sodium (Coumadin) 10 mg 1X WARF ONCE PO Last administered on 17:36; Start 09/03/18 at 16:00; Stop 09/03/18 at 16:01; Status DC Multi-Ingred Cream/Lotion/Oil/ Oint (Hydrocerin Cream) 1 deloris PRN BID PRN TP DRY SKIN / SCALING; Start 09/03/18 at 21:00 Levofloxacin/ Dextrose 100 ml @ 100 mls/hr Q24H IV Last administered on at 21:03; Start 09/03/18 at 21:00 Warfarin Sodium (Coumadin) 7.5 mg 1X WARF ONCE PO Last administered on 17:03; Start 09/04/18 at 16:00; Stop 09/04/18 at 16:01; Status DC Lactobacillus Rhamnosus (Culturelle) 1 cap BID PO Last administered on 07:36; Start 09/04/18 at 12:00 Enoxaparin Sodium (Lovenox 120mg Syringe) 110 mg Q12HR SQ Last administered on 09/05/18at 07:37; Start 09/04/18 at 21:00 Calcium Carbonate/ Glycine (Tums) 500 mg PRN AFTMEALHC PRN PO INDIGESTION Last administered on 09/05/18 09:20; Start 09/04/18 at 20:00 Warfarin Sodium (Coumadin) 12 mg 1X WARF ONCE PO ; Start 09/05/18 at 16:00; Stop 09/05/18 at 16:00; Status DC Warfarin Sodium (Coumadin) 12 mg 1X WARF ONCE PO ; Start 09/05/18 at 16:00; Stop 09/05/18 at 16:01 Active Scripts Active Vitals/I & O Vital Sign - Last 24 Hours 09/04/18 09/04/18 09/04/18 09/04/18 15:00 19:50 20:05 23:03 Temp 98.0 98.9 98.0 98.0 98.9 98.0 Pulse 68 90 91 Resp 20 22 22 B/P (MAP) 136/80 (98) 146/77 (100) 134/76 (95) Pulse Ox 98 98 95 O2 Delivery Nasal Cannula Nasal Cannula Nasal Cannula Room Air O2 Flow Rate 2.0 2.0 2.0 09/05/18 09/05/1809/05/19 03:30 07:33 08:00 Temp 97.9 98.4 97.9 98.4 Pulse 95 86 Resp 21 18 B/P (MAP) 147/92 (110) 148/87 (107) Pulse Ox 94 95 O2 Delivery Room Air Room Air Nasal Cannula O2 Flow Rate 2.0 Intake and Output 09/04/18 09/04/18 09/05/18 15:00 23:00 07:00 Intake Total 100 ml 200 ml 600 ml Output Total 350 ml 200 ml Balance -250 ml 200 ml 400 ml LILLY WOLFE MD Sep 05, 2018 11:11
--- NOTE | 2018-09-05 13:22 | NUR ---
Pharmacy Warfarin Dosing Note S: Pharmacy consulted to assist with anticoagulation therapy started 09/03/18 O: TWILA LOPEZ is a 68 year old F with an acute PE LABS: Last INR: 1.3 Last HGB: 10.6 Last HCT: 32.3 Last PLT: 181 Last dose of 7.5 mg given on 09/04/18 at 1703 Vitamin K given: N A:INR of 1.3 is below desired range of 2 - 3; trending up from baseline of 1.2. Patient has received warfarin 10 mg x 1 dose (09/03) and 7.5 mg x 1 dose (09/04). P: Warfarin dose: 10 mg Today at 1600 Bridge Therapy: Enoxaparin 90 mg sub-q q12h Next INR due 09/06/18 Pharmacy anticoagulation service will continue to follow. VANNESSA ANAYA [facility], 09/05/18 [id number]
[2018-09-05] MEDS ORDERED: WARFARIN 6 MG TABLET. PO ONE (16:00)
[2018-09-05] MEDS ORDERED: WARFARIN 4 MG TABLET. PO ONE (16:00)
[2018-09-05] MEDS ORDERED: WARFARIN 5 MG TABLET. PO ONE (16:00)
[2018-09-05] MEDS: guaiFENesin ORAL 200 MG/10 ML LIQUID. PO PRN (20:54)
[2018-09-06 02:45] VITALS: BP 151/85
[2018-09-06 06:22] LABS: BASO % 1 % (0-3); EOS # 0.3 x10^3/uL (0.0-0.7); EOS % 5 % (0-3); HEMATOCRIT 34.7 % (36.0-47.0); HEMOGLOBIN 11.2 g/dL (12.0-15.5); LYMPH # 1.3 x10^3/uL (1.0-4.8); LYMPH % 22 % (24-48); MEAN CORPUSCULAR HEMOGLOBIN 25 pg (25-35); MEAN CORPUSCULAR HGB CONC 32 g/dL (31-37); MEAN CORPUSCULAR VOLUME 79 fL (79-100); MONO # 0.3 x10^3/uL (0.0-1.1); MONO % 5 % (0-9); NEUT % 67 % (31-73); PLATELET COUNT 204 x10^3/uL (140-400); RED BLOOD COUNT 4.42 x10^6/uL (3.50-5.40); RED CELL DISTRIBUTION WIDTH 17.1 % (11.5-14.5); WHITE BLOOD COUNT 5.9 x10^3/uL (4.0-11.0)
[2018-09-06 06:29] LABS: CREATININE 0.8 mg/dL (0.6-1.0); GFR 71.5; POTASSIUM 4.1 mmol/L (3.5-5.1)
[2018-09-06 06:50] LABS: PROTHROMBIN TIME PATIENT 18.1 SEC (11.7-14.0)
[2018-09-06 07:15] VITALS: BP 170/93
[2018-09-06] MEDS: LACTOBACILLUS RHAMNOSUS GG 1 CAPSULE. PO SCH ×2 (08:08→21:14)
--- NOTE | 2018-09-06 09:29 | PDOC ---
PULMONARY PROGRESS NOTES Subjective feels better Vitals Vital Signs Date Time Temp Pulse Resp B/P (MAP) Pulse Ox O2 Delivery O2 Flow Rate FiO2 09/06/18 07:50 Room Air 09/06/18 07:15 98.4 87 24 170/93 (118) 95 98.4 09/05/18 15:00 2.0 General: Alert, Oriented X4, No acute distress Lungs: Clear Cardiovascular: S1, S2 Abdomen: Soft, Non-tender Extremities: No Edema Skin: Warm Labs Laboratory Tests Test 09/04/18 12:39 09/05/18 05:55 09/05/18 11:25 09/06/18 05:45 Low Molecular Weight Heparin 1.34 IU/mL 1.34 IU/mL White Blood Count 5.2 x10^3/uL (4.0-11.0) 5.9 x10^3/uL (4.0-11.0) Red Blood Count 4.14 x10^6/uL (3.50-5.40) 4.42 x10^6/uL (3.50-5.40) Hemoglobin 10.6 g/dL (12.0-15.5) 11.2 g/dL (12.0-15.5) Hematocrit 32.3 % (36.0-47.0) 34.7 % (36.0-47.0) Mean Corpuscular Volume 78 fL (79-100) 79 fL (79-100) Mean Corpuscular Hemoglobin 26 pg (25-35) 25 pg (25-35) Mean Corpuscular Hemoglobin Concent 33 g/dL (31-37) 32 g/dL (31-37) Red Cell Distribution Width 16.3 % (11.5-14.5) 17.1 % (11.5-14.5) Platelet Count 181 x10^3/uL (140-400) 204 x10^3/uL (140-400) Neutrophils (%) (Auto) 64 % (31-73) 67 % (31-73) Lymphocytes (%) (Auto) 24 % (24-48) 22 % (24-48) Monocytes (%) (Auto) 6 % (0-9) 5 % (0-9) Eosinophils (%) (Auto) 5 % (0-3) 5 % (0-3) Basophils (%) (Auto) 1 % (0-3) 1 % (0-3) Neutrophils # (Auto) 3.4 x10^3uL (1.8-7.7) 4.0 x10^3uL (1.8-7.7) Lymphocytes # (Auto) 1.3 x10^3/uL (1.0-4.8) 1.3 x10^3/uL (1.0-4.8) Monocytes # (Auto) 0.3 x10^3/uL (0.0-1.1) 0.3 x10^3/uL (0.0-1.1) Eosinophils # (Auto) 0.2 x10^3/uL (0.0-0.7) 0.3 x10^3/uL (0.0-0.7) Basophils # (Auto) 0.1 x10^3/uL (0.0-0.2) 0.0 x10^3/uL (0.0-0.2) Prothrombin Time 15.9 SEC (11.7-14.0) 18.1 SEC (11.7-14.0) Prothromb Time International Ratio 1.3 (0.8-1.1) 1.5 (0.8-1.1) Sodium Level 141 mmol/L (136-145) 142 mmol/L (136-145) Potassium Level 4.0 mmol/L (3.5-5.1) 4.1 mmol/L (3.5-5.1) Chloride Level 106 mmol/L (98-107) 105 mmol/L (98-107) Carbon Dioxide Level 26 mmol/L (21-32) 28 mmol/L (21-32) Anion Gap 9 (6-14) 9 (6-14) Blood Urea Nitrogen 10 mg/dL (7-20) 9 mg/dL (7-20) Creatinine 0.7 mg/dL (0.6-1.0) 0.8 mg/dL (0.6-1.0) Estimated GFR (Cockcroft-Gault) 83.5 71.5 Glucose Level 105 mg/dL (70-99) 109 mg/dL (70-99) Calcium Level 8.8 mg/dL (8.5-10.1) 9.0 mg/dL (8.5-10.1) Laboratory Tests Test 09/05/18 11:25 09/06/18 05:45 Low Molecular Weight Heparin 1.34 IU/mL White Blood Count 5.9 x10^3/uL (4.0-11.0) Red Blood Count 4.42 x10^6/uL (3.50-5.40) Hemoglobin 11.2 g/dL (12.0-15.5) Hematocrit 34.7 % (36.0-47.0) Mean Corpuscular Volume 79 fL (79-100) Mean Corpuscular Hemoglobin 25 pg (25-35) Mean Corpuscular Hemoglobin Concent 32 g/dL (31-37) Red Cell Distribution Width 17.1 % (11.5-14.5) Platelet Count 204 x10^3/uL (140-400) Neutrophils (%) (Auto) 67 % (31-73) Lymphocytes (%) (Auto) 22 % (24-48) Monocytes (%) (Auto) 5 % (0-9) Eosinophils (%) (Auto) 5 % (0-3) Basophils (%) (Auto) 1 % (0-3) Neutrophils # (Auto) 4.0 x10^3uL (1.8-7.7) Lymphocytes # (Auto) 1.3 x10^3/uL (1.0-4.8) Monocytes # (Auto) 0.3 x10^3/uL (0.0-1.1) Eosinophils # (Auto) 0.3 x10^3/uL (0.0-0.7) Basophils # (Auto) 0.0 x10^3/uL (0.0-0.2) Prothrombin Time 18.1 SEC (11.7-14.0) Prothromb Time International Ratio 1.5 (0.8-1.1) Sodium Level 142 mmol/L (136-145) Potassium Level 4.1 mmol/L (3.5-5.1) Chloride Level 105 mmol/L (98-107) Carbon Dioxide Level 28 mmol/L (21-32) Anion Gap 9 (6-14) Blood Urea Nitrogen 9 mg/dL (7-20) Creatinine 0.8 mg/dL (0.6-1.0) Estimated GFR (Cockcroft-Gault) 71.5 Glucose Level 109 mg/dL (70-99) Calcium Level 9.0 mg/dL (8.5-10.1) Medications Active Scripts Medications Dose Route/Sig Max Daily Dose Days Date Category Impression . 1. 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 She was treated with two years with anticoagulation with warfarin. She had no known malignancy. She is not on any form of estrogens. She does have a strong family history of thromboembolic disease with 2 nephews in their 20s and one niece at age 38 had pulmonary embolism.( Factor V mutation) Hypercoagulable panel per patient's history was negative in the past. Now, she comes in with recurrent pulmonary emboli. The exact timing is not so clear, but it seems like her dyspnea got worse in the last few weeks. The risk factor could be hypercoagulable state in addition underlying immobility during recent winter when she was mostly at home. She has also put on 20 pounds during this winter. .She will be on lifelong anticoagulation. 2. Right lower deep venous thrombosis. 3. Rule out hypercoagulable state. 4. The patient has no known malignancy. 5. Mildly increased troponin level, could be related to mild RV ischemia. 6. ? left renal mass vs cyst on ct chest. US neg 7. R/O MARIANGEL Plan . INR NOTED COUMADIN 12.5 TODAY MAY NEED LOVENOX AT HOME TO BRIDGE TO COUMADIN 1. Patient not be a suitable candidate for DOAC's due to high BMI. She will be on lifelong anticoagulation. initiated on warfarin. Continue lovenox till INR therapeutic. Once she looses sig wt, she can be on Oral Eliquis in future 2. Venous Dopplers of lower extremities reviewed. 3. Obtain echocardiogram. 4. Weight loss is strongly emphasized. 5. She does have symptoms suggesting sleep apnea with daytime somnolence and she would benefit from sleep study. KIP JAMA MD Sep 06, 2018 09:29
[2018-09-06] MEDS: LISINOPRIL 5 MG TABLET. PO SCH ×2 (10:21→21:20)
[2018-09-06 11:30] VITALS: BP 127/68
--- NOTE | 2018-09-06 11:44 | NUR ---
SS following up with discharge planning. PT screened pt and reported no rehab needs. Current discharge disposition is to home with spouse. SS will continue to follow for pending discharge needs.
--- NOTE | 2018-09-06 14:01 | PDOC ---
PROGRESS NOTES History of Present Illness History of Present Illness Assessment/Plan Assessment/Plan 1. There are left greater than right pulmonary emboli. There were pulmonary emboli bilaterally on previous 2015 exam although clot burden on the right significantly less than previously. The larger left emboli are more acute/recurrent. 2. There is lesion of the left kidney not fully included although probably larger than previous 2015 exam for which ultrasound exam recommended as solid mass not excluded. sono is ok 3. There is emphysema. 4. MORBID OBESITY 5. Acute hypoxic resp failure 6. MARIANGEL LIKELY/// NEEDS SLEEP STUDY SOON 7. uti PLAN 15 MG COUMADIN PO X 1 09/05 CVC ADMIT SQ LOVENOX WARFARIN DOSING 15 MG PO TODAY, INR IN AM VENOUS DOPPLER LEGS REVIEWED RENAL SONO pulm consult home meds YEARLY FLU SHOT levaquin 20 min visit time, pt exam, chart review, > 50% of time with pt exam, chart review, pt care coordination Vitals Vitals Vital Signs Date Time Temp Pulse Resp B/P (MAP) Pulse Ox O2 Delivery O2 Flow Rate FiO2 09/06/18 11:30 98.4 90 24 127/68 (87) 97 Room Air 98.4 09/05/18 15:00 2.0 Physical Exam General: Alert, Oriented X3, Cooperative, No acute distress Heart: Regular rate, Normal S1, Normal S2 Lungs: Clear Abdomen: Normal bowel sounds, Soft Extremities: No clubbing, No cyanosis, No edema Skin: No significant lesion Labs LABS Laboratory Tests Test 09/06/18 05:45 White Blood Count 5.9 x10^3/uL (4.0-11.0) Red Blood Count 4.42 x10^6/uL (3.50-5.40) Hemoglobin 11.2 g/dL (12.0-15.5) Hematocrit 34.7 % (36.0-47.0) Mean Corpuscular Volume 79 fL (79-100) Mean Corpuscular Hemoglobin 25 pg (25-35) Mean Corpuscular Hemoglobin Concent 32 g/dL (31-37) Red Cell Distribution Width 17.1 % (11.5-14.5) Platelet Count 204 x10^3/uL (140-400) Neutrophils (%) (Auto) 67 % (31-73) Lymphocytes (%) (Auto) 22 % (24-48) Monocytes (%) (Auto) 5 % (0-9) Eosinophils (%) (Auto) 5 % (0-3) Basophils (%) (Auto) 1 % (0-3) Neutrophils # (Auto) 4.0 x10^3uL (1.8-7.7) Lymphocytes # (Auto) 1.3 x10^3/uL (1.0-4.8) Monocytes # (Auto) 0.3 x10^3/uL (0.0-1.1) Eosinophils # (Auto) 0.3 x10^3/uL (0.0-0.7) Basophils # (Auto) 0.0 x10^3/uL (0.0-0.2) Prothrombin Time 18.1 SEC (11.7-14.0) Prothromb Time International Ratio 1.5 (0.8-1.1) Sodium Level 142 mmol/L (136-145) Potassium Level 4.1 mmol/L (3.5-5.1) Chloride Level 105 mmol/L (98-107) Carbon Dioxide Level 28 mmol/L (21-32) Anion Gap 9 (6-14) Blood Urea Nitrogen 9 mg/dL (7-20) Creatinine 0.8 mg/dL (0.6-1.0) Estimated GFR (Cockcroft-Gault) 71.5 Glucose Level 109 mg/dL (70-99) Calcium Level 9.0 mg/dL (8.5-10.1) Assessment and Plan Assessmemt and Plan Problems Medical Problems: (1) Pulmonary embolism Status: Acute Comment Review of Relevant I have reviewed the following items nena (where applicable) has been applied. Labs Laboratory Tests Test 09/05/18 05:55 09/05/18 11:25 09/06/18 05:45 White Blood Count 5.2 x10^3/uL (4.0-11.0) 5.9 x10^3/uL (4.0-11.0) Red Blood Count 4.14 x10^6/uL (3.50-5.40) 4.42 x10^6/uL (3.50-5.40) Hemoglobin 10.6 g/dL (12.0-15.5) 11.2 g/dL (12.0-15.5) Hematocrit 32.3 % (36.0-47.0) 34.7 % (36.0-47.0) Mean Corpuscular Volume 78 fL (79-100) 79 fL (79-100) Mean Corpuscular Hemoglobin 26 pg (25-35) 25 pg (25-35) Mean Corpuscular Hemoglobin Concent 33 g/dL (31-37) 32 g/dL (31-37) Red Cell Distribution Width 16.3 % (11.5-14.5) 17.1 % (11.5-14.5) Platelet Count 181 x10^3/uL (140-400) 204 x10^3/uL (140-400) Neutrophils (%) (Auto) 64 % (31-73) 67 % (31-73) Lymphocytes (%) (Auto) 24 % (24-48) 22 % (24-48) Monocytes (%) (Auto) 6 % (0-9) 5 % (0-9) Eosinophils (%) (Auto) 5 % (0-3) 5 % (0-3) Basophils (%) (Auto) 1 % (0-3) 1 % (0-3) Neutrophils # (Auto) 3.4 x10^3uL (1.8-7.7) 4.0 x10^3uL (1.8-7.7) Lymphocytes # (Auto) 1.3 x10^3/uL (1.0-4.8) 1.3 x10^3/uL (1.0-4.8) Monocytes # (Auto) 0.3 x10^3/uL (0.0-1.1) 0.3 x10^3/uL (0.0-1.1) Eosinophils # (Auto) 0.2 x10^3/uL (0.0-0.7) 0.3 x10^3/uL (0.0-0.7) Basophils # (Auto) 0.1 x10^3/uL (0.0-0.2) 0.0 x10^3/uL (0.0-0.2) Prothrombin Time 15.9 SEC (11.7-14.0) 18.1 SEC (11.7-14.0) Prothromb Time International Ratio 1.3 (0.8-1.1) 1.5 (0.8-1.1) Sodium Level 141 mmol/L (136-145) 142 mmol/L (136-145) Potassium Level 4.0 mmol/L (3.5-5.1) 4.1 mmol/L (3.5-5.1) Chloride Level 106 mmol/L (98-107) 105 mmol/L (98-107) Carbon Dioxide Level 26 mmol/L (21-32) 28 mmol/L (21-32) Anion Gap 9 (6-14) 9 (6-14) Blood Urea Nitrogen 10 mg/dL (7-20) 9 mg/dL (7-20) Creatinine 0.7 mg/dL (0.6-1.0) 0.8 mg/dL (0.6-1.0) Estimated GFR (Cockcroft-Gault) 83.5 71.5 Glucose Level 105 mg/dL (70-99) 109 mg/dL (70-99) Calcium Level 8.8 mg/dL (8.5-10.1) 9.0 mg/dL (8.5-10.1) Low Molecular Weight Heparin 1.34 IU/mL Laboratory Tests Test 09/06/18 05:45 White Blood Count 5.9 x10^3/uL (4.0-11.0) Red Blood Count 4.42 x10^6/uL (3.50-5.40) Hemoglobin 11.2 g/dL (12.0-15.5) Hematocrit 34.7 % (36.0-47.0) Mean Corpuscular Volume 79 fL (79-100) Mean Corpuscular Hemoglobin 25 pg (25-35) Mean Corpuscular Hemoglobin Concent 32 g/dL (31-37) Red Cell Distribution Width 17.1 % (11.5-14.5) Platelet Count 204 x10^3/uL (140-400) Neutrophils (%) (Auto) 67 % (31-73) Lymphocytes (%) (Auto) 22 % (24-48) Monocytes (%) (Auto) 5 % (0-9) Eosinophils (%) (Auto) 5 % (0-3) Basophils (%) (Auto) 1 % (0-3) Neutrophils # (Auto) 4.0 x10^3uL (1.8-7.7) Lymphocytes # (Auto) 1.3 x10^3/uL (1.0-4.8) Monocytes # (Auto) 0.3 x10^3/uL (0.0-1.1) Eosinophils # (Auto) 0.3 x10^3/uL (0.0-0.7) Basophils # (Auto) 0.0 x10^3/uL (0.0-0.2) Prothrombin Time 18.1 SEC (11.7-14.0) Prothromb Time International Ratio 1.5 (0.8-1.1) Sodium Level 142 mmol/L (136-145) Potassium Level 4.1 mmol/L (3.5-5.1) Chloride Level 105 mmol/L (98-107) Carbon Dioxide Level 28 mmol/L (21-32) Anion Gap 9 (6-14) Blood Urea Nitrogen 9 mg/dL (7-20) Creatinine 0.8 mg/dL (0.6-1.0) Estimated GFR (Cockcroft-Gault) 71.5 Glucose Level 109 mg/dL (70-99) Calcium Level 9.0 mg/dL (8.5-10.1) Medications Current Medications Enoxaparin Sodium (Lovenox 150mg Syringe) 130 mg 1X ONCE SQ Last administered on 09/02/18at 20:37; Start 09/02/18 at 20:00; Stop 09/02/18 at 20:01; Status DC Ondansetron HCl (Zofran) 4 mg PRN Q8HRS PRN IV NAUSEA/VOMITING; Start 09/02/18 at 21:00; Stop 09/03/18 at 20:59; Status DC Fentanyl Citrate (Fentanyl 2ml Vial) 25 mcg PRN Q2HRS PRN IV PAIN; Start at 21:00 Acetaminophen (Tylenol) 650 mg PRN Q4HRS PRN PO FEVER; Start 09/02/18 at 21:00 ; Stop 09/03/18 at 20:59; Status DC Apixaban (Eliquis) 10 mg BID PO ; Start 09/03/18 at 11:00; Stop 09/03/18 at 11: 09; Status DC Apixaban (Eliquis) 5 mg BID PO ; Start 09/10/18 at 09:00; Stop 09/10/18 at 09:00 ; Status DC Enoxaparin Sodium (Lovenox 150mg Syringe) 140 mg Q12HR SQ Last administered on 09/04/18 08:23; Start 09/03/18 at 11:30; Stop 09/04/18 at 14:59; Status DC Warfarin Sodium (Coumadin Per Pharmacy) 1 each PRN DAILY PRN MC SEE COMMENTS Last administered on 09/05/18 13:22; Start 09/03/18 at 13:00 Warfarin Sodium (Coumadin) 10 mg 1X WARF ONCE PO Last administered on 17:36; Start 09/03/18 at 16:00; Stop 09/03/18 at 16:01; Status DC Multi-Ingred Cream/Lotion/Oil/ Oint (Hydrocerin Cream) 1 deloris PRN BID PRN TP DRY SKIN / SCALING; Start 09/03/18 at 21:00 Levofloxacin/ Dextrose 100 ml @ 100 mls/hr Q24H IV Last administered on 20:53; Start 09/03/18 at 21:00 Warfarin Sodium (Coumadin) 7.5 mg 1X WARF ONCE PO Last administered on 17:03; Start 09/04/18 at 16:00; Stop 09/04/18 at 16:01; Status DC Lactobacillus Rhamnosus (Culturelle) 1 cap BID PO Last administered on 08:08; Start 09/04/18 at 12:00 Enoxaparin Sodium (Lovenox 120mg Syringe) 110 mg Q12HR SQ Last administered on 09/05/18 07:37; Start 09/04/18 at 21:00; Stop 09/05/18 at 13:13; Status DC Calcium Carbonate/ Glycine (Tums) 500 mg PRN AFTMEALHC PRN PO INDIGESTION Last administered on 09/05/18 09:20; Start 09/04/18 at 20:00 Warfarin Sodium (Coumadin) 12 mg 1X WARF ONCE PO ; Start 09/05/18 at 16:00; Stop 09/05/18 at 16:00; Status DC Warfarin Sodium (Coumadin) 12 mg 1X WARF ONCE PO ; Start 09/05/18 at 16:00; Stop 09/05/18 at 16:01; Status Cancel Warfarin Sodium (Coumadin) 10 mg 1X WARF ONCE PO Last administered on 3/24/ 19at 16:02; Start 09/05/18 at 16:00; Stop 09/05/18 at 16:01; Status DC Enoxaparin Sodium (Lovenox 100mg Syringe) 90 mg Q12HR SQ Last administered on at 08:08; Start 09/05/18 at 21:00 Guaifenesin (Robitussin) 200 mg PRN Q4HRS PRN PO COUGH Last administered on at 20:54; Start 09/05/18 at 20:45 Lisinopril (Prinivil) 2.5 mg BID PO Last administered on 09/06/18at 10:21; Start 09/06/18 at 10:00 Hydralazine HCl (Apresoline Inj) 10 mg PRN Q4HRS PRN IVP ELEVATED BP, SEE COMMENTS; Start 09/06/18 at 09:45 Active Scripts Active Vitals/I & O Vital Sign - Last 24 Hours 09/05/18 09/05/18 09/05/18 09/05/18 15:00 19:37 20:00 23:01 Temp 98.4 99.1 98.6 98.4 99.1 98.6 Pulse 87 86 88 Resp 20 B/P (MAP) 142/75 (97) 151/76 (101) 160/77 (104) Pulse Ox 96 95 94 O2 Delivery Nasal Cannula Room Air Room Air Room Air O2 Flow Rate 2.0 09/06/18 09/06/18 09/06/18 09/06/18 02:45 07:15 07:50 10:21 Temp 98.3 98.4 98.3 98.4 Pulse 87 87 85 Resp 20 24 B/P (MAP) 151/85 (107) 170/93 (118) Pulse Ox 95 95 O2 Delivery Room Air Room Air Room Air 09/06/18 11:30 Temp 98.4 98.4 Pulse 90 Resp 24 B/P (MAP) 127/68 (87) Pulse Ox 97 O2 Delivery Room Air Intake and Output 09/05/18 09/05/18 09/06/18 14:59 22:59 06:59 Intake Total 400 ml Balance 400 ml LILLY WOLFE MD Sep 06, 2018 14:01
[2018-09-06 15:30] VITALS: BP 116/73
--- NOTE | 2018-09-06 15:32 | NUR ---
Pharmacy Warfarin Dosing Note S:Pharmacy consulted to assist with anticoagulation therapy started 09/03/18 with target INR: 2 -3 O:TWILA LOPEZ is a 68 year old F with acute PE LABS: Last INR: 1.5 Last HGB: 10.6 Last HCT: 32.3 Last PLT: 181 Last dose of 10 mg given on 09/05/18 at 1703 Previous Regimen: Vitamin K given: N Drug Interaction Changes: Ongoing Drug Interactions: A:INR of 1.5 is below desired range. Target range for this patient is: 2 -3 P: Warfarin dose: 12.5 Today at 1600 Bridge Therapy: Enoxaparin 90 mg q12h LEVEL 4TH HRS AFTER 3/25 HS DOSE. Next INR due IN AM Pharmacy anticoagulation service will continue to follow. GEN RONDON Sourav, 09/06/18 [id number]
[2018-09-06] MEDS ORDERED: WARFARIN 7.5 MG TABLET. PO ONE ×2 (16:00)
[2018-09-06] MEDS ORDERED: WARFARIN 5 MG TABLET. PO ONE (16:00)
[2018-09-06 19:45] VITALS: BP 150/70
[2018-09-06] MEDS: guaiFENesin ORAL 200 MG/10 ML LIQUID. PO PRN (21:15)
[2018-09-06 22:50] VITALS: BP 172/81
[2018-09-06] MEDS: hydrALAZINE 20 MG/ML VIAL. IVP PRN (23:03)
[2018-09-07] VITALS (7 sets, daily range): BP systolic 122–185; BP diastolic 56–83
[2018-09-07 01:24] LABS: BASO # 0.1 x10^3/uL (0.0-0.2); BASO % 1 % (0-3); EOS # 0.3 x10^3/uL (0.0-0.7); EOS % 3 % (0-3); HEMATOCRIT 38.7 % (36.0-47.0); HEMOGLOBIN 12.4 g/dL (12.0-15.5); LYMPH # 2.6 x10^3/uL (1.0-4.8); LYMPH % 27 % (24-48); MEAN CORPUSCULAR HEMOGLOBIN 25 pg (25-35); MEAN CORPUSCULAR HGB CONC 32 g/dL (31-37); MEAN CORPUSCULAR VOLUME 79 fL (79-100); MONO # 0.4 x10^3/uL (0.0-1.1); MONO % 4 % (0-9); NEUT # 6.1 x10^3uL (1.8-7.7); NEUT % 64 % (31-73); PLATELET COUNT 285 x10^3/uL (140-400); RED BLOOD COUNT 4.92 x10^6/uL (3.50-5.40); RED CELL DISTRIBUTION WIDTH 17.3 % (11.5-14.5); WHITE BLOOD COUNT 9.4 x10^3/uL (4.0-11.0)
[2018-09-07 01:37] LABS: CALCIUM 9.5 mg/dL (8.5-10.1); CREATININE 0.9 mg/dL (0.6-1.0); GFR 62.5; POTASSIUM 3.4 mmol/L (3.5-5.1)
[2018-09-07 01:40] LABS: PROTHROMBIN TIME PATIENT 20.3 SEC (11.7-14.0)
[2018-09-07 01:41] LABS: LOW MOLECULAR WEIGHT HEPARIN 1.01 IU/mL
[2018-09-07] MEDS: hydrALAZINE 20 MG/ML VIAL. IVP PRN (07:56)
[2018-09-07] MEDS: LACTOBACILLUS RHAMNOSUS GG 1 CAPSULE. PO SCH ×2 (08:45→21:33)
[2018-09-07] MEDS: ACETAMINOPHEN 325 MG TABLET. PO PRN ×2 (08:45→21:45)
[2018-09-07] MEDS: LISINOPRIL 5 MG TABLET. PO SCH ×2 (08:48→21:35)
--- NOTE | 2018-09-07 09:20 | PDOC ---
PULMONARY PROGRESS NOTES Subjective feels better Vitals Vital Signs Date Time Temp Pulse Resp B/P (MAP) Pulse Ox O2 Delivery O2 Flow Rate FiO2 09/07/18 08:48 95 125/57 09/07/18 08:00 Room Air 2.0 09/07/18 07:00 98.4 20 96 98.4 General: Alert, Oriented X4, No acute distress Lungs: Clear Cardiovascular: S1, S2 Abdomen: Soft, Non-tender Extremities: No Edema Skin: Warm Labs Laboratory Tests Test 09/05/18 11:25 09/06/18 05:45 09/07/18 01:15 Low Molecular Weight Heparin 1.34 IU/mL 1.01 IU/mL White Blood Count 5.9 x10^3/uL (4.0-11.0) 9.4 x10^3/uL (4.0-11.0) Red Blood Count 4.42 x10^6/uL (3.50-5.40) 4.92 x10^6/uL (3.50-5.40) Hemoglobin 11.2 g/dL (12.0-15.5) 12.4 g/dL (12.0-15.5) Hematocrit 34.7 % (36.0-47.0) 38.7 % (36.0-47.0) Mean Corpuscular Volume 79 fL (79-100) 79 fL (79-100) Mean Corpuscular Hemoglobin 25 pg (25-35) 25 pg (25-35) Mean Corpuscular Hemoglobin Concent 32 g/dL (31-37) 32 g/dL (31-37) Red Cell Distribution Width 17.1 % (11.5-14.5) 17.3 % (11.5-14.5) Platelet Count 204 x10^3/uL (140-400) 285 x10^3/uL (140-400) Neutrophils (%) (Auto) 67 % (31-73) 64 % (31-73) Lymphocytes (%) (Auto) 22 % (24-48) 27 % (24-48) Monocytes (%) (Auto) 5 % (0-9) 4 % (0-9) Eosinophils (%) (Auto) 5 % (0-3) 3 % (0-3) Basophils (%) (Auto) 1 % (0-3) 1 % (0-3) Neutrophils # (Auto) 4.0 x10^3uL (1.8-7.7) 6.1 x10^3uL (1.8-7.7) Lymphocytes # (Auto) 1.3 x10^3/uL (1.0-4.8) 2.6 x10^3/uL (1.0-4.8) Monocytes # (Auto) 0.3 x10^3/uL (0.0-1.1) 0.4 x10^3/uL (0.0-1.1) Eosinophils # (Auto) 0.3 x10^3/uL (0.0-0.7) 0.3 x10^3/uL (0.0-0.7) Basophils # (Auto) 0.0 x10^3/uL (0.0-0.2) 0.1 x10^3/uL (0.0-0.2) Prothrombin Time 18.1 SEC (11.7-14.0) 20.3 SEC (11.7-14.0) Prothromb Time International Ratio 1.5 (0.8-1.1) 1.8 (0.8-1.1) Sodium Level 142 mmol/L (136-145) 142 mmol/L (136-145) Potassium Level 4.1 mmol/L (3.5-5.1) 3.4 mmol/L (3.5-5.1) Chloride Level 105 mmol/L (98-107) 104 mmol/L (98-107) Carbon Dioxide Level 28 mmol/L (21-32) 27 mmol/L (21-32) Anion Gap 9 (6-14) 11 (6-14) Blood Urea Nitrogen 9 mg/dL (7-20) 12 mg/dL (7-20) Creatinine 0.8 mg/dL (0.6-1.0) 0.9 mg/dL (0.6-1.0) Estimated GFR (Cockcroft-Gault) 71.5 62.5 Glucose Level 109 mg/dL (70-99) 120 mg/dL (70-99) Calcium Level 9.0 mg/dL (8.5-10.1) 9.5 mg/dL (8.5-10.1) Laboratory Tests Test 09/07/18 01:15 White Blood Count 9.4 x10^3/uL (4.0-11.0) Red Blood Count 4.92 x10^6/uL (3.50-5.40) Hemoglobin 12.4 g/dL (12.0-15.5) Hematocrit 38.7 % (36.0-47.0) Mean Corpuscular Volume 79 fL (79-100) Mean Corpuscular Hemoglobin 25 pg (25-35) Mean Corpuscular Hemoglobin Concent 32 g/dL (31-37) Red Cell Distribution Width 17.3 % (11.5-14.5) Platelet Count 285 x10^3/uL (140-400) Neutrophils (%) (Auto) 64 % (31-73) Lymphocytes (%) (Auto) 27 % (24-48) Monocytes (%) (Auto) 4 % (0-9) Eosinophils (%) (Auto) 3 % (0-3) Basophils (%) (Auto) 1 % (0-3) Neutrophils # (Auto) 6.1 x10^3uL (1.8-7.7) Lymphocytes # (Auto) 2.6 x10^3/uL (1.0-4.8) Monocytes # (Auto) 0.4 x10^3/uL (0.0-1.1) Eosinophils # (Auto) 0.3 x10^3/uL (0.0-0.7) Basophils # (Auto) 0.1 x10^3/uL (0.0-0.2) Prothrombin Time 20.3 SEC (11.7-14.0) Prothromb Time International Ratio 1.8 (0.8-1.1) Sodium Level 142 mmol/L (136-145) Potassium Level 3.4 mmol/L (3.5-5.1) Chloride Level 104 mmol/L (98-107) Carbon Dioxide Level 27 mmol/L (21-32) Anion Gap 11 (6-14) Blood Urea Nitrogen 12 mg/dL (7-20) Creatinine 0.9 mg/dL (0.6-1.0) Estimated GFR (Cockcroft-Gault) 62.5 Glucose Level 120 mg/dL (70-99) Calcium Level 9.5 mg/dL (8.5-10.1) Low Molecular Weight Heparin 1.01 IU/mL Medications Active Scripts Medications Dose Route/Sig Max Daily Dose Days Date Category Impression . 1. 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 She was treated with two years with anticoagulation with warfarin. She had no known malignancy. She is not on any form of estrogens. She does have a strong family history of thromboembolic disease with 2 nephews in their 20s and one niece at age 38 had pulmonary embolism.( Factor V mutation) Hypercoagulable panel per patient's history was negative in the past. Now, she comes in with recurrent pulmonary emboli. The exact timing is not so clear, but it seems like her dyspnea got worse in the last few weeks. The risk factor could be hypercoagulable state in addition underlying immobility during recent winter when she was mostly at home. She has also put on 20 pounds during this winter. .She will be on lifelong anticoagulation. 2. Right lower deep venous thrombosis. 3. Rule out hypercoagulable state. 4. The patient has no known malignancy. 5. Mildly increased troponin level, could be related to mild RV ischemia. 6. ? left renal mass vs cyst on ct chest. US neg 7. R/O MARIANGEL Plan . INR NOTED BP NOT WELL CONTROLLED WILL D/C IN AM COUMADIN TODAY INR IN AM KIP JAMA MD Sep 07, 2018 09:20
--- NOTE | 2018-09-07 11:02 | PDOC ---
PROGRESS NOTES History of Present Illness History of Present Illness Assessment/Plan Assessment/Plan 1. There are left greater than right pulmonary emboli. There were pulmonary emboli bilaterally on previous 2015 exam although clot burden on the right significantly less than previously. The larger left emboli are more acute/recurrent. 2. There is lesion of the left kidney not fully included although probably larger than previous 2015 exam for which ultrasound exam recommended as solid mass not excluded. sono is ok 3. There is emphysema. 4. MORBID OBESITY 5. Acute hypoxic resp failure 6. MARIANGEL LIKELY/// NEEDS SLEEP STUDY SOON 7. uti 8. HYPERTENSION, UNCONTROLLED, SEVERE AT TIMES PLAN 15 MG COUMADIN PO X 1 09/05 CVC ADMIT SQ LOVENOX WARFARIN DOSING 5 MG PO TODAY, INR IN AM VENOUS DOPPLER LEGS REVIEWED RENAL SONO pulm consult home meds YEARLY FLU SHOT levaquin ADD NORVASC 5 MG PO DAILY, LISINOPRIL 2.5 MG PO BID 34 min visit time, pt exam, chart review, > 50% of time with pt exam, chart review, pt care coordination Vitals Vitals Vital Signs Date Time Temp Pulse Resp B/P (MAP) Pulse Ox O2 Delivery O2 Flow Rate FiO2 09/07/18 08:48 95 125/57 09/07/18 08:00 Room Air 2.0 09/07/18 07:00 98.4 20 96 98.4 Physical Exam General: Alert, Oriented X3, Cooperative, No acute distress Heart: Regular rate, Normal S1, Normal S2 Lungs: Clear Abdomen: Normal bowel sounds, Soft Extremities: No clubbing, No cyanosis, No edema Skin: No significant lesion Labs LABS Laboratory Tests Test 09/07/18 01:15 White Blood Count 9.4 x10^3/uL (4.0-11.0) Red Blood Count 4.92 x10^6/uL (3.50-5.40) Hemoglobin 12.4 g/dL (12.0-15.5) Hematocrit 38.7 % (36.0-47.0) Mean Corpuscular Volume 79 fL (79-100) Mean Corpuscular Hemoglobin 25 pg (25-35) Mean Corpuscular Hemoglobin Concent 32 g/dL (31-37) Red Cell Distribution Width 17.3 % (11.5-14.5) Platelet Count 285 x10^3/uL (140-400) Neutrophils (%) (Auto) 64 % (31-73) Lymphocytes (%) (Auto) 27 % (24-48) Monocytes (%) (Auto) 4 % (0-9) Eosinophils (%) (Auto) 3 % (0-3) Basophils (%) (Auto) 1 % (0-3) Neutrophils # (Auto) 6.1 x10^3uL (1.8-7.7) Lymphocytes # (Auto) 2.6 x10^3/uL (1.0-4.8) Monocytes # (Auto) 0.4 x10^3/uL (0.0-1.1) Eosinophils # (Auto) 0.3 x10^3/uL (0.0-0.7) Basophils # (Auto) 0.1 x10^3/uL (0.0-0.2) Prothrombin Time 20.3 SEC (11.7-14.0) Prothromb Time International Ratio 1.8 (0.8-1.1) Sodium Level 142 mmol/L (136-145) Potassium Level 3.4 mmol/L (3.5-5.1) Chloride Level 104 mmol/L (98-107) Carbon Dioxide Level 27 mmol/L (21-32) Anion Gap 11 (6-14) Blood Urea Nitrogen 12 mg/dL (7-20) Creatinine 0.9 mg/dL (0.6-1.0) Estimated GFR (Cockcroft-Gault) 62.5 Glucose Level 120 mg/dL (70-99) Calcium Level 9.5 mg/dL (8.5-10.1) Low Molecular Weight Heparin 1.01 IU/mL Assessment and Plan Assessmemt and Plan Problems Medical Problems: (1) Pulmonary embolism Status: Acute Comment Review of Relevant I have reviewed the following items nena (where applicable) has been applied. Labs Laboratory Tests Test 09/05/18 11:25 09/06/18 05:45 09/07/18 01:15 Low Molecular Weight Heparin 1.34 IU/mL 1.01 IU/mL White Blood Count 5.9 x10^3/uL (4.0-11.0) 9.4 x10^3/uL (4.0-11.0) Red Blood Count 4.42 x10^6/uL (3.50-5.40) 4.92 x10^6/uL (3.50-5.40) Hemoglobin 11.2 g/dL (12.0-15.5) 12.4 g/dL (12.0-15.5) Hematocrit 34.7 % (36.0-47.0) 38.7 % (36.0-47.0) Mean Corpuscular Volume 79 fL (79-100) 79 fL (79-100) Mean Corpuscular Hemoglobin 25 pg (25-35) 25 pg (25-35) Mean Corpuscular Hemoglobin Concent 32 g/dL (31-37) 32 g/dL (31-37) Red Cell Distribution Width 17.1 % (11.5-14.5) 17.3 % (11.5-14.5) Platelet Count 204 x10^3/uL (140-400) 285 x10^3/uL (140-400) Neutrophils (%) (Auto) 67 % (31-73) 64 % (31-73) Lymphocytes (%) (Auto) 22 % (24-48) 27 % (24-48) Monocytes (%) (Auto) 5 % (0-9) 4 % (0-9) Eosinophils (%) (Auto) 5 % (0-3) 3 % (0-3) Basophils (%) (Auto) 1 % (0-3) 1 % (0-3) Neutrophils # (Auto) 4.0 x10^3uL (1.8-7.7) 6.1 x10^3uL (1.8-7.7) Lymphocytes # (Auto) 1.3 x10^3/uL (1.0-4.8) 2.6 x10^3/uL (1.0-4.8) Monocytes # (Auto) 0.3 x10^3/uL (0.0-1.1) 0.4 x10^3/uL (0.0-1.1) Eosinophils # (Auto) 0.3 x10^3/uL (0.0-0.7) 0.3 x10^3/uL (0.0-0.7) Basophils # (Auto) 0.0 x10^3/uL (0.0-0.2) 0.1 x10^3/uL (0.0-0.2) Prothrombin Time 18.1 SEC (11.7-14.0) 20.3 SEC (11.7-14.0) Prothromb Time International Ratio 1.5 (0.8-1.1) 1.8 (0.8-1.1) Sodium Level 142 mmol/L (136-145) 142 mmol/L (136-145) Potassium Level 4.1 mmol/L (3.5-5.1) 3.4 mmol/L (3.5-5.1) Chloride Level 105 mmol/L (98-107) 104 mmol/L (98-107) Carbon Dioxide Level 28 mmol/L (21-32) 27 mmol/L (21-32) Anion Gap 9 (6-14) 11 (6-14) Blood Urea Nitrogen 9 mg/dL (7-20) 12 mg/dL (7-20) Creatinine 0.8 mg/dL (0.6-1.0) 0.9 mg/dL (0.6-1.0) Estimated GFR (Cockcroft-Gault) 71.5 62.5 Glucose Level 109 mg/dL (70-99) 120 mg/dL (70-99) Calcium Level 9.0 mg/dL (8.5-10.1) 9.5 mg/dL (8.5-10.1) Laboratory Tests Test 09/07/18 01:15 White Blood Count 9.4 x10^3/uL (4.0-11.0) Red Blood Count 4.92 x10^6/uL (3.50-5.40) Hemoglobin 12.4 g/dL (12.0-15.5) Hematocrit 38.7 % (36.0-47.0) Mean Corpuscular Volume 79 fL (79-100) Mean Corpuscular Hemoglobin 25 pg (25-35) Mean Corpuscular Hemoglobin Concent 32 g/dL (31-37) Red Cell Distribution Width 17.3 % (11.5-14.5) Platelet Count 285 x10^3/uL (140-400) Neutrophils (%) (Auto) 64 % (31-73) Lymphocytes (%) (Auto) 27 % (24-48) Monocytes (%) (Auto) 4 % (0-9) Eosinophils (%) (Auto) 3 % (0-3) Basophils (%) (Auto) 1 % (0-3) Neutrophils # (Auto) 6.1 x10^3uL (1.8-7.7) Lymphocytes # (Auto) 2.6 x10^3/uL (1.0-4.8) Monocytes # (Auto) 0.4 x10^3/uL (0.0-1.1) Eosinophils # (Auto) 0.3 x10^3/uL (0.0-0.7) Basophils # (Auto) 0.1 x10^3/uL (0.0-0.2) Prothrombin Time 20.3 SEC (11.7-14.0) Prothromb Time International Ratio 1.8 (0.8-1.1) Sodium Level 142 mmol/L (136-145) Potassium Level 3.4 mmol/L (3.5-5.1) Chloride Level 104 mmol/L (98-107) Carbon Dioxide Level 27 mmol/L (21-32) Anion Gap 11 (6-14) Blood Urea Nitrogen 12 mg/dL (7-20) Creatinine 0.9 mg/dL (0.6-1.0) Estimated GFR (Cockcroft-Gault) 62.5 Glucose Level 120 mg/dL (70-99) Calcium Level 9.5 mg/dL (8.5-10.1) Low Molecular Weight Heparin 1.01 IU/mL Microbiology 09/03/18 Urine Culture - Preliminary, Resulted 09/03/18 Urine Culture Result 1 (YESY) - Preliminary, Resulted Medications Current Medications Enoxaparin Sodium (Lovenox 150mg Syringe) 130 mg 1X ONCE SQ Last administered on 09/02/18at 20:37; Start 09/02/18 at 20:00; Stop 09/02/18 at 20:01; Status DC Ondansetron HCl (Zofran) 4 mg PRN Q8HRS PRN IV NAUSEA/VOMITING; Start 09/02/18 at 21:00; Stop 09/03/18 at 20:59; Status DC Fentanyl Citrate (Fentanyl 2ml Vial) 25 mcg PRN Q2HRS PRN IV PAIN; Start at 21:00 Acetaminophen (Tylenol) 650 mg PRN Q4HRS PRN PO FEVER; Start 09/02/18 at 21:00 ; Stop 09/03/18 at 20:59; Status DC Apixaban (Eliquis) 10 mg BID PO ; Start 09/03/18 at 11:00; Stop 09/03/18 at 11: 09; Status DC Apixaban (Eliquis) 5 mg BID PO ; Start 09/10/18 at 09:00; Stop 09/10/18 at 09:00 ; Status DC Enoxaparin Sodium (Lovenox 150mg Syringe) 140 mg Q12HR SQ Last administered on 09/04/18at 08:23; Start 09/03/18 at 11:30; Stop 09/04/18 at 14:59; Status DC Warfarin Sodium (Coumadin Per Pharmacy) 1 each PRN DAILY PRN MC SEE COMMENTS Last administered on 09/06/18at 14:40; Start 09/03/18 at 13:00 Warfarin Sodium (Coumadin) 10 mg 1X WARF ONCE PO Last administered on at 17:36; Start 09/03/18 at 16:00; Stop 09/03/18 at 16:01; Status DC Multi-Ingred Cream/Lotion/Oil/ Oint (Hydrocerin Cream) 1 deloris PRN BID PRN TP DRY SKIN / SCALING; Start 09/03/18 at 21:00 Levofloxacin/ Dextrose 100 ml @ 100 mls/hr Q24H IV Last administered on at 20:53; Start 09/03/18 at 21:00; Stop 09/06/18 at 17:11; Status DC Warfarin Sodium (Coumadin) 7.5 mg 1X WARF ONCE PO Last administered on at 17:03; Start 09/04/18 at 16:00; Stop 09/04/18 at 16:01; Status DC Lactobacillus Rhamnosus (Culturelle) 1 cap BID PO Last administered on at 08:45; Start 09/04/18 at 12:00 Enoxaparin Sodium (Lovenox 120mg Syringe) 110 mg Q12HR SQ Last administered on 09/05/18at 07:37; Start 09/04/18 at 21:00; Stop 09/05/18 at 13:13; Status DC Calcium Carbonate/ Glycine (Tums) 500 mg PRN AFTMEALHC PRN PO INDIGESTION Last administered on 09/05/18at 09:20; Start 09/04/18 at 20:00 Warfarin Sodium (Coumadin) 12 mg 1X WARF ONCE PO ; Start 09/05/18 at 16:00; Stop 09/05/18 at 16:00; Status DC Warfarin Sodium (Coumadin) 12 mg 1X WARF ONCE PO ; Start 09/05/18 at 16:00; Stop 09/05/18 at 16:01; Status Cancel Warfarin Sodium (Coumadin) 10 mg 1X WARF ONCE PO Last administered on at 16:02; Start 09/05/18 at 16:00; Stop 09/05/18 at 16:01; Status DC Enoxaparin Sodium (Lovenox 100mg Syringe) 90 mg Q12HR SQ Last administered on at 08:45; Start 09/05/18 at 21:00 Guaifenesin (Robitussin) 200 mg PRN Q4HRS PRN PO COUGH Last administered on at 21:15; Start 09/05/18 at 20:45 Lisinopril (Prinivil) 2.5 mg BID PO Last administered on 09/07/18at 08:48; Start 09/06/18 at 10:00 Hydralazine HCl (Apresoline Inj) 10 mg PRN Q4HRS PRN IVP ELEVATED BP, SEE COMMENTS Last administered on 09/07/18at 07:56; Start 09/06/18 at 09:45 Warfarin Sodium (Coumadin) 15 mg 1X WARF ONCE PO ; Start 09/06/18 at 16:00; Stop 09/06/18 at 16:00; Status DC Warfarin Sodium (Coumadin) 7.5 mg 1X WARF ONCE PO Last administered on at 16:34; Start 09/06/18 at 16:00; Stop 09/06/18 at 16:01; Status DC Warfarin Sodium (Coumadin) 5 mg 1X WARF ONCE PO Last administered on at 16:34; Start 09/06/18 at 16:00; Stop 09/06/18 at 16:01; Status DC Levofloxacin (Levaquin) 250 mg DAILY PO Last administered on 09/07/18at 08:45; Start 09/07/18 at 09:00 Acetaminophen (Tylenol) 650 mg PRN Q6HRS PRN PO MILD PAIN Last administered on 09/07/18at 08:45; Start 09/07/18 at 08:30 Active Scripts Active Vitals/I & O Vital Sign - Last 24 Hours 09/06/18 09/06/18 09/06/18 09/06/18 11:30 15:30 19:45 20:00 Temp 98.4 98.2 98.6 98.4 98.2 98.6 Pulse 90 89 91 Resp 24 24 20 B/P (MAP) 127/68 (87) 116/73 (87) 150/70 (96) Pulse Ox 97 94 97 O2 Delivery Room Air Room Air Room Air Room Air O2 Flow Rate 2.0 09/06/18 09/06/18 09/06/18 09/07/18 21:20 22:50 23:03 00:09 Temp 98.6 98.6 Pulse 91 86 83 95 Resp 20 B/P (MAP) 148/86 172/81 (111) 172/87 144/74 (97) Pulse Ox 95 96 O2 Delivery Room Air Room Air 09/07/18 09/07/18 09/07/18 09/07/18 03:10 07:00 07:56 08:00 Temp 98.2 98.4 98.2 98.4 Pulse 92 86 86 Resp 20 20 B/P (MAP) 146/70 (95) 185/81 (115) 185/81 Pulse Ox 97 96 O2 Delivery Room Air Room Air Room Air O2 Flow Rate 2.0 09/07/18 08:48 Pulse 95 B/P (MAP) 125/57 Intake and Output 09/06/18 09/06/18 09/07/18 15:00 23:00 07:00 Intake Total 500 ml Output Total 375 ml Balance -375 ml 500 ml LILLY WOLFE MD Sep 07, 2018 11:02
--- NOTE | 2018-09-07 12:50 | NUR ---
Pharmacy Warfarin Dosing Note S: Pharmacy consulted to assist with anticoagulation therapy started 09/03/18 O: TWILA LOPEZ is a 68 year old F with acute PE LABS: Last INR: 1.8 Last HGB: 12.4 Last HCT: 38.7 Last PLT: 285 Last dose of 12.5mg given on 09/06/18 at 1634 A:INR of 1.8 is below desired range. Target range for this patient is: 2 -3 P: Warfarin dose: 12.5mg Today at [address] Therapy: Enoxaparin 90 mg q12h Next INR due 3/27 AM Pharmacy anticoagulation service will continue to follow. CHAPIS WELLER RP, 09/07/18 0933
--- NOTE | 2018-09-07 14:23 | NUR ---
SS following up with discharge planning. Roopa from [facility] met with pt to discuss home healthcare. Pt agreeable to home healthcare with [facility], ; fax [phone]. SS will await discharge orders for home healthcare and will proceed accordingly with discharge planning.
[2018-09-07] MEDS ORDERED: WARFARIN 5 MG TABLET. PO ONE (16:00)
[2018-09-07] MEDS ORDERED: WARFARIN 7.5 MG TABLET. PO ONE (16:00)
[2018-09-07] MEDS ORDERED: amLODIPine BESYLATE 5 MG TABLET PO ONE (16:30)
[2018-09-07] MEDS: CALCIUM CARBONATE 500 MG TAB.CHEW PO PRN (17:33)
[2018-09-07] MEDS ORDERED: LISINOPRIL 5 MG TABLET. PO SCH (21:00)
[2018-09-07] MEDS: guaiFENesin ORAL 200 MG/10 ML LIQUID. PO PRN (21:33)
[2018-09-08 02:17] LABS: PROTHROMBIN TIME PATIENT 27.7 SEC (11.7-14.0)
[2018-09-08 03:00] VITALS: BP 138/78
[2018-09-08 07:38] VITALS: BP 129/68
--- NOTE | 2018-09-08 08:52 | NUR ---
Pharmacy Warfarin Dosing Note S:Pharmacy consulted to assist with anticoagulation therapy started 09/03/18 with target INR: 2 -3 O:TWILA LOPEZ is a 68 year old F with acute PE LABS: Last INR: 2.6 Last HGB: 12.4 Last HCT: 38.7 Last PLT: 285 Last dose of 12.5mg given on 09/07/18 at 1734 Previous Regimen: Vitamin K given: N Drug Interaction Changes: Ongoing Drug Interactions: A:INR of 2.6 is within desired range. Target range for this patient is: 2 -3 P: Warfarin dose: 8mg Today at 1600 [address] Therapy: Enoxaparin 90 mg q12h Next INR due 09/09/18. Pharmacy anticoagulation service will continue to follow. KWAME IGLESIAS RP, 09/08/18 0849
[2018-09-08] MEDS ORDERED: amLODIPine BESYLATE 5 MG TABLET PO SCH (09:00)
[2018-09-08] MEDS: LACTOBACILLUS RHAMNOSUS GG 1 CAPSULE. PO SCH (09:08)
[2018-09-08] MEDS: LISINOPRIL 5 MG TABLET. PO SCH (09:13)
--- NOTE | 2018-09-08 09:21 | PDOC ---
PULMONARY PROGRESS NOTES Subjective feels better Vitals Vital Signs Date Time Temp Pulse Resp B/P (MAP) Pulse Ox O2 Delivery O2 Flow Rate FiO2 09/08/18 09:14 100 108/60 09/08/18 07:38 98.1 20 94 Room Air 98.1 09/07/18 20:00 2.0 General: Alert, Oriented X4, No acute distress Lungs: Clear Cardiovascular: S1, S2 Abdomen: Soft, Non-tender Extremities: No Edema Skin: Warm Labs Laboratory Tests Test 09/07/18 01:15 09/07/18 12:27 09/08/18 01:38 White Blood Count 9.4 x10^3/uL (4.0-11.0) Red Blood Count 4.92 x10^6/uL (3.50-5.40) Hemoglobin 12.4 g/dL (12.0-15.5) Hematocrit 38.7 % (36.0-47.0) Mean Corpuscular Volume 79 fL (79-100) Mean Corpuscular Hemoglobin 25 pg (25-35) Mean Corpuscular Hemoglobin Concent 32 g/dL (31-37) Red Cell Distribution Width 17.3 % (11.5-14.5) Platelet Count 285 x10^3/uL (140-400) Neutrophils (%) (Auto) 64 % (31-73) Lymphocytes (%) (Auto) 27 % (24-48) Monocytes (%) (Auto) 4 % (0-9) Eosinophils (%) (Auto) 3 % (0-3) Basophils (%) (Auto) 1 % (0-3) Neutrophils # (Auto) 6.1 x10^3uL (1.8-7.7) Lymphocytes # (Auto) 2.6 x10^3/uL (1.0-4.8) Monocytes # (Auto) 0.4 x10^3/uL (0.0-1.1) Eosinophils # (Auto) 0.3 x10^3/uL (0.0-0.7) Basophils # (Auto) 0.1 x10^3/uL (0.0-0.2) Prothrombin Time 20.3 SEC (11.7-14.0) 27.7 SEC (11.7-14.0) Prothromb Time International Ratio 1.8 (0.8-1.1) 2.6 (0.8-1.1) Sodium Level 142 mmol/L (136-145) Potassium Level 3.4 mmol/L (3.5-5.1) Chloride Level 104 mmol/L (98-107) Carbon Dioxide Level 27 mmol/L (21-32) Anion Gap 11 (6-14) Blood Urea Nitrogen 12 mg/dL (7-20) Creatinine 0.9 mg/dL (0.6-1.0) Estimated GFR (Cockcroft-Gault) 62.5 Glucose Level 120 mg/dL (70-99) Calcium Level 9.5 mg/dL (8.5-10.1) Low Molecular Weight Heparin 1.01 IU/mL 0.92 IU/mL 0.94 IU/mL Laboratory Tests Test 09/07/18 12:27 09/08/18 01:38 Low Molecular Weight Heparin 0.92 IU/mL 0.94 IU/mL Prothrombin Time 27.7 SEC (11.7-14.0) Prothromb Time International Ratio 2.6 (0.8-1.1) Medications Active Scripts Medications Dose Route/Sig Max Daily Dose Days Date Category Impression . 1. 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 She was treated with two years with anticoagulation with warfarin. She had no known malignancy. She is not on any form of estrogens. She does have a strong family history of thromboembolic disease with 2 nephews in their 20s and one niece at age 38 had pulmonary embolism.( Factor V mutation) Hypercoagulable panel per patient's history was negative in the past. Now, she comes in with recurrent pulmonary emboli. The exact timing is not so clear, but it seems like her dyspnea got worse in the last few weeks. The risk factor could be hypercoagulable state in addition underlying immobility during recent winter when she was mostly at home. She has also put on 20 pounds during this winter. .She will be on lifelong anticoagulation. 2. Right lower deep venous thrombosis. 3. Rule out hypercoagulable state. 4. The patient has no known malignancy. 5. Mildly increased troponin level, could be related to mild RV ischemia. 6. ? left renal mass vs cyst on ct chest. US neg 7. R/O MARIANGEL Plan . INR GREATER THAN 2 OK TO D/C FOLLOW UP IN OFFICE NEEDS ANTICOAGULATION FOR LIFE KIP JAMA MD Sep 08, 2018 09:21
[2018-09-08 10:43] VITALS: BP 109/73
--- NOTE | 2018-09-08 11:10 | PDOC ---
PROGRESS NOTES History of Present Illness History of Present Illness discharge dx Assessment/Plan 1. There are left greater than right pulmonary emboli. There were pulmonary emboli bilaterally on previous 2014 exam although clot burden on the right significantly less than previously. The larger left emboli are more acute/recurrent. 2. There is lesion of the left kidney not fully included although probably larger than previous 2015 exam for which ultrasound exam recommended as solid mass not excluded. sono is ok 3. emphysema. 4. MORBID OBESITY 5. Acute hypoxic resp failure 6. MARIANGEL LIKELY/// NEEDS SLEEP STUDY SOON 7. uti 8. HYPERTENSION, UNCONTROLLED, SEVERE AT TIMES improved on d/c PLAN 15 MG COUMADIN PO X 1 09/05 CVC ADMIT SQ LOVENOX WARFARIN DOSING 4 MG PO TODAY, INR IN AM VENOUS DOPPLER LEGS REVIEWED RENAL SONO ik pulm consult home meds YEARLY FLU SHOT levaquin ADD NORVASC 5 MG PO DAILY, LISINOPRIL 2.5 MG PO BID 34 d/c planning time, pt exam, chart review, Vitals Vitals Vital Signs Date Time Temp Pulse Resp B/P (MAP) Pulse Ox O2 Delivery O2 Flow Rate FiO2 09/08/18 10:43 98.1 90 20 109/73 (85) 93 Room Air 98.1 09/07/18 20:00 2.0 Physical Exam General: Alert, Oriented X3, Cooperative, No acute distress Heart: Regular rate, Normal S1, Normal S2 Lungs: Clear Abdomen: Normal bowel sounds, Soft Extremities: No clubbing, No cyanosis, No edema Skin: No significant lesion Labs LABS Laboratory Tests Test 09/07/18 12:27 09/08/18 01:38 Low Molecular Weight Heparin 0.92 IU/mL 0.94 IU/mL Prothrombin Time 27.7 SEC (11.7-14.0) Prothromb Time International Ratio 2.6 (0.8-1.1) Assessment and Plan Assessmemt and Plan Problems Medical Problems: (1) Pulmonary embolism Status: Acute Comment Review of Relevant I have reviewed the following items nena (where applicable) has been applied. Labs Laboratory Tests Test 09/07/18 01:15 09/07/18 12:27 09/08/18 01:38 White Blood Count 9.4 x10^3/uL (4.0-11.0) Red Blood Count 4.92 x10^6/uL (3.50-5.40) Hemoglobin 12.4 g/dL (12.0-15.5) Hematocrit 38.7 % (36.0-47.0) Mean Corpuscular Volume 79 fL (79-100) Mean Corpuscular Hemoglobin 25 pg (25-35) Mean Corpuscular Hemoglobin Concent 32 g/dL (31-37) Red Cell Distribution Width 17.3 % (11.5-14.5) Platelet Count 285 x10^3/uL (140-400) Neutrophils (%) (Auto) 64 % (31-73) Lymphocytes (%) (Auto) 27 % (24-48) Monocytes (%) (Auto) 4 % (0-9) Eosinophils (%) (Auto) 3 % (0-3) Basophils (%) (Auto) 1 % (0-3) Neutrophils # (Auto) 6.1 x10^3uL (1.8-7.7) Lymphocytes # (Auto) 2.6 x10^3/uL (1.0-4.8) Monocytes # (Auto) 0.4 x10^3/uL (0.0-1.1) Eosinophils # (Auto) 0.3 x10^3/uL (0.0-0.7) Basophils # (Auto) 0.1 x10^3/uL (0.0-0.2) Prothrombin Time 20.3 SEC (11.7-14.0) 27.7 SEC (11.7-14.0) Prothromb Time International Ratio 1.8 (0.8-1.1) 2.6 (0.8-1.1) Sodium Level 142 mmol/L (136-145) Potassium Level 3.4 mmol/L (3.5-5.1) Chloride Level 104 mmol/L (98-107) Carbon Dioxide Level 27 mmol/L (21-32) Anion Gap 11 (6-14) Blood Urea Nitrogen 12 mg/dL (7-20) Creatinine 0.9 mg/dL (0.6-1.0) Estimated GFR (Cockcroft-Gault) 62.5 Glucose Level 120 mg/dL (70-99) Calcium Level 9.5 mg/dL (8.5-10.1) Low Molecular Weight Heparin 1.01 IU/mL 0.92 IU/mL 0.94 IU/mL Laboratory Tests Test 09/07/18 12:27 09/08/18 01:38 Low Molecular Weight Heparin 0.92 IU/mL 0.94 IU/mL Prothrombin Time 27.7 SEC (11.7-14.0) Prothromb Time International Ratio 2.6 (0.8-1.1) Microbiology 09/03/18 Urine Culture - Final, Complete 09/03/18 Urine Culture Result 1 (YESY) - Final, Complete 09/03/18 Antimicrobic Susceptibility - Final, Complete Medications Current Medications Enoxaparin Sodium (Lovenox 150mg Syringe) 130 mg 1X ONCE SQ Last administered on 09/02/18at 20:37; Start 09/02/18 at 20:00; Stop 09/02/18 at 20:01; Status DC Ondansetron HCl (Zofran) 4 mg PRN Q8HRS PRN IV NAUSEA/VOMITING; Start 09/02/18 at 21:00; Stop 09/03/18 at 20:59; Status DC Fentanyl Citrate (Fentanyl 2ml Vial) 25 mcg PRN Q2HRS PRN IV PAIN; Start at 21:00 Acetaminophen (Tylenol) 650 mg PRN Q4HRS PRN PO FEVER; Start 09/02/18 at 21:00 ; Stop 09/03/18 at 20:59; Status DC Apixaban (Eliquis) 10 mg BID PO ; Start 09/03/18 at 11:00; Stop 09/03/18 at 11: 09; Status DC Apixaban (Eliquis) 5 mg BID PO ; Start 09/10/18 at 09:00; Stop 09/10/18 at 09:00 ; Status DC Enoxaparin Sodium (Lovenox 150mg Syringe) 140 mg Q12HR SQ Last administered on 09/04/18at 08:23; Start 09/03/18 at 11:30; Stop 09/04/18 at 14:59; Status DC Warfarin Sodium (Coumadin Per Pharmacy) 1 each PRN DAILY PRN MC SEE COMMENTS Last administered on 09/08/18at 08:51; Start 09/03/18 at 13:00 Warfarin Sodium (Coumadin) 10 mg 1X WARF ONCE PO Last administered on at 17:36; Start 09/03/18 at 16:00; Stop 09/03/18 at 16:01; Status DC Multi-Ingred Cream/Lotion/Oil/ Oint (Hydrocerin Cream) 1 deloris PRN BID PRN TP DRY SKIN / SCALING Last administered on 09/08/18 09:07; Start 09/03/18 at 21:00 Levofloxacin/ Dextrose 100 ml @ 100 mls/hr Q24H IV Last administered on 20:53; Start 09/03/18 at 21:00; Stop 09/06/18 at 17:11; Status DC Warfarin Sodium (Coumadin) 7.5 mg 1X WARF ONCE PO Last administered on 17:03; Start 09/04/18 at 16:00; Stop 09/04/18 at 16:01; Status DC Lactobacillus Rhamnosus (Culturelle) 1 cap BID PO Last administered on 09:08; Start 09/04/18 at 12:00 Enoxaparin Sodium (Lovenox 120mg Syringe) 110 mg Q12HR SQ Last administered on 09/05/18 07:37; Start 09/04/18 at 21:00; Stop 09/05/18 at 13:13; Status DC Calcium Carbonate/ Glycine (Tums) 500 mg PRN AFTMEALHC PRN PO INDIGESTION Last administered on 09/07/18 17:33; Start 09/04/18 at 20:00 Warfarin Sodium (Coumadin) 12 mg 1X WARF ONCE PO ; Start 09/05/18 at 16:00; Stop 09/05/18 at 16:01; Status Cancel Warfarin Sodium (Coumadin) 12 mg 1X WARF ONCE PO ; Start 09/05/18 at 16:00; Stop 09/05/18 at 16:01; Status Cancel Warfarin Sodium (Coumadin) 10 mg 1X WARF ONCE PO Last administered on at 16:02; Start 09/05/18 at 16:00; Stop 09/05/18 at 16:01; Status DC Enoxaparin Sodium (Lovenox 100mg Syringe) 90 mg Q12HR SQ Last administered on at 09:14; Start 09/05/18 at 21:00 Guaifenesin (Robitussin) 200 mg PRN Q4HRS PRN PO COUGH Last administered on 21:33; Start 09/05/18 at 20:45 Lisinopril (Prinivil) 2.5 mg BID PO Last administered on 09/08/18 09:13; Start 09/06/18 at 10:00 Hydralazine HCl (Apresoline Inj) 10 mg PRN Q4HRS PRN IVP ELEVATED BP, SEE COMMENTS Last administered on 09/07/18 07:56; Start 09/06/18 at 09:45 Warfarin Sodium (Coumadin) 15 mg 1X WARF ONCE PO ; Start 09/06/18 at 16:00; Stop 09/06/18 at 16:01; Status Cancel Warfarin Sodium (Coumadin) 7.5 mg 1X WARF ONCE PO Last administered on 16:34; Start 09/06/18 at 16:00; Stop 09/06/18 at 16:01; Status DC Warfarin Sodium (Coumadin) 5 mg 1X WARF ONCE PO Last administered on 16:34; Start 09/06/18 at 16:00; Stop 09/06/18 at 16:01; Status DC Levofloxacin (Levaquin) 250 mg DAILY PO Last administered on 09/08/18 09:08; Start 09/07/18 at 09:00 Acetaminophen (Tylenol) 650 mg PRN Q6HRS PRN PO MILD PAIN Last administered on 09/07/18 21:45; Start 09/07/18 at 08:30 Warfarin Sodium (Coumadin) 7.5 mg 1X WARF ONCE PO Last administered on 17:34; Start 09/07/18 at 16:00; Stop 09/07/18 at 16:01; Status DC Warfarin Sodium (Coumadin) 5 mg 1X WARF ONCE PO Last administered on 17:34; Start 09/07/18 at 16:00; Stop 09/07/18 at 16:01; Status DC Amlodipine Besylate (Norvasc) 5 mg 1X ONCE PO Last administered on 09/07/18 17:35; Start 09/07/18 at 16:30; Stop 09/07/18 at 16:31; Status DC Amlodipine Besylate (Norvasc) 5 mg DAILY PO Last administered on 3/27/19at 09: 14; Start 09/08/18 at 09:00 Lisinopril (Prinivil) 2.5 mg BID PO ; Start 09/07/18 at 21:00; Status UNV Warfarin Sodium (Coumadin) 8 mg 1X WARF ONCE PO ; Start 09/08/18 at 16:00; Stop 09/08/18 at 16:01 Active Scripts Active Vitals/I & O Vital Sign - Last 24 Hours 09/07/18 09/07/18 09/07/18 09/07/18 15:00 17:35 19:00 20:00 Temp 98.2 98.3 98.2 98.3 Pulse 89 89 91 Resp 20 20 B/P (MAP) 134/73 (93) 134/73 122/83 (96) Pulse Ox 97 95 O2 Delivery Room Air Room Air Room Air O2 Flow Rate 2.0 09/07/18 09/07/18 09/08/18 09/08/18 21:35 23:00 03:00 07:38 Temp 98.1 97.9 98.1 98.1 97.9 98.1 Pulse 91 95 85 91 Resp 20 20 20 B/P (MAP) 122/83 122/56 (78) 138/78 (98) 129/68 (88) Pulse Ox 96 96 94 O2 Delivery Room Air Room Air Room Air 09/08/18 09/08/18 09/08/18 09:13 09:14 10:43 Temp 98.1 98.1 Pulse 95 100 90 Resp 20 B/P (MAP) 108/60 108/60 109/73 (85) Pulse Ox 93 O2 Delivery Room Air Intake and Output 09/07/18 09/07/18 09/08/18 15:00 23:00 07:00 Intake Total 120 ml Output Total 100 ml 100 ml Balance 20 ml -100 ml LILLY OWLFE MD Sep 08, 2018 11:09
[2018-09-08] MEDS: CALCIUM CARBONATE 500 MG TAB.CHEW PO PRN (11:39)
--- NOTE | 2018-09-08 15:27 | PDOC3 ---
Discharge Summary Date of Admission: Sep 02, 2018 Date of Discharge: Sep 08, 2018 Follow-Up: 1-2 days Admitting Diagnosis comment: discharge dx Assessment/Plan 1. There are left greater than right pulmonary emboli. There were pulmonary emboli bilaterally on previous 2014 exam although clot burden on the right significantly less than previously. The larger left emboli are more acute/recurrent. 2. There is lesion of the left kidney not fully included although probably larger than previous 2015 exam for which ultrasound exam recommended as solid mass not excluded. sono is ok 3. emphysema. 4. MORBID OBESITY 5. Acute hypoxic resp failure 6. MARIANGEL LIKELY/// NEEDS SLEEP STUDY SOON 7. uti 8. HYPERTENSION, UNCONTROLLED, SEVERE AT TIMES improved on d/c PLAN 15 MG COUMADIN PO X 1 09/05 CVC ADMIT SQ LOVENOX WARFARIN DOSING 4 MG PO TODAY, INR IN AM VENOUS DOPPLER LEGS REVIEWED RENAL SONO Ok pulm consult home meds YEARLY FLU SHOT levaquin ADD NORVASC 5 MG PO DAILY, LISINOPRIL 2.5 MG PO BID 34 d/c planning time, pt exam, chart review, HOME WITH HOME HEALTH INR X 3 DAYS , SEE PCP DAVID Vitals Vitals Vital Signs Date Time Temp Pulse Resp B/P (MAP) Pulse Ox O2 Delivery O2 Flow Rate FiO2 09/08/18 10:43 98.1 90 20 109/73 (85) 93 Room Air 98.1 09/07/18 20:00 2.0 Physical Exam General: Alert, Oriented X3, Cooperative, No acute distress Heart: Regular rate, Normal S1, Normal S2 Lungs: Clear Abdomen: Normal bowel sounds, Soft Extremities: No clubbing, No cyanosis, No edema Skin: No significant lesion Labs FINAL DIAGNOSIS Problems Medical Problems: (1) Pulmonary embolism Status: Acute Brief Hospital Course Ms. Teixeira is a 68 old [sex] who presented with [RECURRENT PULM EMBOLUS ] CONDITION AT DISCHARGE: Improved Discharge Medications Current Medications Enoxaparin Sodium (Lovenox 150mg Syringe) 130 mg 1X ONCE SQ Last administered on 09/02/18at 20:37; Start 09/02/18 at 20:00; Stop 09/02/18 at 20:01; Status DC Ondansetron HCl (Zofran) 4 mg PRN Q8HRS PRN IV NAUSEA/VOMITING; Start 09/02/18 at 21:00; Stop 09/03/18 at 20:59; Status DC Fentanyl Citrate (Fentanyl 2ml Vial) 25 mcg PRN Q2HRS PRN IV PAIN; Start at 21:00 Acetaminophen (Tylenol) 650 mg PRN Q4HRS PRN PO FEVER; Start 09/02/18 at 21:00 ; Stop 09/03/18 at 20:59; Status DC Apixaban (Eliquis) 10 mg BID PO ; Start 09/03/18 at 11:00; Stop 09/03/18 at 11: 09; Status DC Apixaban (Eliquis) 5 mg BID PO ; Start 09/10/18 at 09:00; Stop 09/10/18 at 09:00 ; Status DC Enoxaparin Sodium (Lovenox 150mg Syringe) 140 mg Q12HR SQ Last administered on 09/04/18at 08:23; Start 09/03/18 at 11:30; Stop 09/04/18 at 14:59; Status DC Warfarin Sodium (Coumadin Per Pharmacy) 1 each PRN DAILY PRN MC SEE COMMENTS Last administered on 09/08/18at 08:51; Start 09/03/18 at 13:00 Warfarin Sodium (Coumadin) 10 mg 1X WARF ONCE PO Last administered on at 17:36; Start 09/03/18 at 16:00; Stop 09/03/18 at 16:01; Status DC Multi-Ingred Cream/Lotion/Oil/ Oint (Hydrocerin Cream) 1 deloris PRN BID PRN TP DRY SKIN / SCALING Last administered on 09/08/18at 09:07; Start 09/03/18 at 21:00 Levofloxacin/ Dextrose 100 ml @ 100 mls/hr Q24H IV Last administered on at 20:53; Start 09/03/18 at 21:00; Stop 09/06/18 at 17:11; Status DC Warfarin Sodium (Coumadin) 7.5 mg 1X WARF ONCE PO Last administered on at 17:03; Start 09/04/18 at 16:00; Stop 09/04/18 at 16:01; Status DC Lactobacillus Rhamnosus (Culturelle) 1 cap BID PO Last administered on at 09:08; Start 09/04/18 at 12:00 Enoxaparin Sodium (Lovenox 120mg Syringe) 110 mg Q12HR SQ Last administered on 09/05/18 07:37; Start 09/04/18 at 21:00; Stop 09/05/18 at 13:13; Status DC Calcium Carbonate/ Glycine (Tums) 500 mg PRN AFTMEALHC PRN PO INDIGESTION Last administered on 09/08/18at 11:39; Start 09/04/18 at 20:00 Warfarin Sodium (Coumadin) 12 mg 1X WARF ONCE PO ; Start 09/05/18 at 16:00; Stop 09/05/18 at 16:01; Status Cancel Warfarin Sodium (Coumadin) 12 mg 1X WARF ONCE PO ; Start 09/05/18 at 16:00; Stop 09/05/18 at 16:01; Status Cancel Warfarin Sodium (Coumadin) 10 mg 1X WARF ONCE PO Last administered on at 16:02; Start 09/05/18 at 16:00; Stop 09/05/18 at 16:01; Status DC Enoxaparin Sodium (Lovenox 100mg Syringe) 90 mg Q12HR SQ Last administered on 09:14; Start 09/05/18 at 21:00 Guaifenesin (Robitussin) 200 mg PRN Q4HRS PRN PO COUGH Last administered on 21:33; Start 09/05/18 at 20:45 Lisinopril (Prinivil) 2.5 mg BID PO Last administered on 09/08/18at 09:13; Start 09/06/18 at 10:00 Hydralazine HCl (Apresoline Inj) 10 mg PRN Q4HRS PRN IVP ELEVATED BP, SEE COMMENTS Last administered on 09/07/18at 07:56; Start 09/06/18 at 09:45 Warfarin Sodium (Coumadin) 15 mg 1X WARF ONCE PO ; Start 09/06/18 at 16:00; Stop 09/06/18 at 16:01; Status Cancel Warfarin Sodium (Coumadin) 7.5 mg 1X WARF ONCE PO Last administered on at 16:34; Start 09/06/18 at 16:00; Stop 09/06/18 at 16:01; Status DC Warfarin Sodium (Coumadin) 5 mg 1X WARF ONCE PO Last administered on 16:34; Start 09/06/18 at 16:00; Stop 09/06/18 at 16:01; Status DC Levofloxacin (Levaquin) 250 mg DAILY PO Last administered on 09/08/18at 09:08; Start 09/07/18 at 09:00 Acetaminophen (Tylenol) 650 mg PRN Q6HRS PRN PO MILD PAIN Last administered on 09/07/18at 21:45; Start 09/07/18 at 08:30 Warfarin Sodium (Coumadin) 7.5 mg 1X WARF ONCE PO Last administered on 17:34; Start 09/07/18 at 16:00; Stop 09/07/18 at 16:01; Status DC Warfarin Sodium (Coumadin) 5 mg 1X WARF ONCE PO Last administered on at 17:34; Start 09/07/18 at 16:00; Stop 09/07/18 at 16:01; Status DC Amlodipine Besylate (Norvasc) 5 mg 1X ONCE PO Last administered on 09/07/18at 17:35; Start 09/07/18 at 16:30; Stop 09/07/18 at 16:31; Status DC Amlodipine Besylate (Norvasc) 5 mg DAILY PO Last administered on 09/08/18at 09: 14; Start 09/08/18 at 09:00 Lisinopril (Prinivil) 2.5 mg BID PO ; Start 09/07/18 at 21:00; Status UNV Warfarin Sodium (Coumadin) 8 mg 1X WARF ONCE PO ; Start 09/08/18 at 16:00; Stop 09/08/18 at 16:01 Active Scripts Active Vital Signs Vital Signs Date Time Temp Pulse Resp B/P (MAP) Pulse Ox O2 Delivery O2 Flow Rate FiO2 09/08/18 10:43 98.1 90 20 109/73 (85) 93 Room Air 98.1 09/07/18 20:00 2.0 Labs Laboratory Tests Test 09/07/18 01:15 09/07/18 12:27 09/08/18 01:38 White Blood Count 9.4 x10^3/uL (4.0-11.0) Red Blood Count 4.92 x10^6/uL (3.50-5.40) Hemoglobin 12.4 g/dL (12.0-15.5) Hematocrit 38.7 % (36.0-47.0) Mean Corpuscular Volume 79 fL (79-100) Mean Corpuscular Hemoglobin 25 pg (25-35) Mean Corpuscular Hemoglobin Concent 32 g/dL (31-37) Red Cell Distribution Width 17.3 % (11.5-14.5) Platelet Count 285 x10^3/uL (140-400) Neutrophils (%) (Auto) 64 % (31-73) Lymphocytes (%) (Auto) 27 % (24-48) Monocytes (%) (Auto) 4 % (0-9) Eosinophils (%) (Auto) 3 % (0-3) Basophils (%) (Auto) 1 % (0-3) Neutrophils # (Auto) 6.1 x10^3uL (1.8-7.7) Lymphocytes # (Auto) 2.6 x10^3/uL (1.0-4.8) Monocytes # (Auto) 0.4 x10^3/uL (0.0-1.1) Eosinophils # (Auto) 0.3 x10^3/uL (0.0-0.7) Basophils # (Auto) 0.1 x10^3/uL (0.0-0.2) Prothrombin Time 20.3 SEC (11.7-14.0) 27.7 SEC (11.7-14.0) Prothromb Time International Ratio 1.8 (0.8-1.1) 2.6 (0.8-1.1) Sodium Level 142 mmol/L (136-145) Potassium Level 3.4 mmol/L (3.5-5.1) Chloride Level 104 mmol/L (98-107) Carbon Dioxide Level 27 mmol/L (21-32) Anion Gap 11 (6-14) Blood Urea Nitrogen 12 mg/dL (7-20) Creatinine 0.9 mg/dL (0.6-1.0) Estimated GFR (Cockcroft-Gault) 62.5 Glucose Level 120 mg/dL (70-99) Calcium Level 9.5 mg/dL (8.5-10.1) Low Molecular Weight Heparin 1.01 IU/mL 0.92 IU/mL 0.94 IU/mL Laboratory Tests Test 09/08/18 01:38 Prothrombin Time 27.7 SEC (11.7-14.0) Prothromb Time International Ratio 2.6 (0.8-1.1) Low Molecular Weight Heparin 0.94 IU/mL Allergies Allergies Coded Allergies Type Severity Reaction Last Updated Verified Sulfa (Sulfonamide Antibiotics) Allergy Intermediate 11/26/14 Yes Tetanus Vaccines and Toxoid Allergy Intermediate 11/26/14 Yes latex Allergy Intermediate 11/26/14 Yes Disposition/Orders: D/C to Home w/ HH Patient Instructions D/C PLANNING 36 MIN LILLY WOLFE MD Sep 08, 2018 15:27
[2018-09-08] MEDS ORDERED: WARF10TA45 MC (15:29)
[2018-09-08] MEDS ORDERED: LISI-338 PO (15:29)
[2018-09-08] MEDS ORDERED: AMLO5TAB10 PO (15:29)
--- NOTE | 2018-09-08 15:35 | SNU/HH DC ---
DISCHARGE WITH HOME HEALTH DISCHARGE INFORMATION: Final Diagnosis: Problems Medical Problems: (1) Pulmonary embolism Status: Acute Condition on Discharge: Stable CODE STATUS: Code Status: Full HOME HEALTH: Face to Face: I certify this patient is under my care and that I, or a nurse practitioner or physician's project construction assistant manager working with me, had a face to face encounter that meets the physician face to face encounter requirements with this patient on []. Medical Complications: Other (PULMONARY EMBOLUS) Physical Therapy For: Evalulation/Treatment Home Health Aide For: Self-care [employer]NER For: Community Resources POST DISCHARGE ORDERS: Activity Instructions for Disc: Activity as tolerated Weight Bearing Status after Di: No restrictions DIET AFTER DISCHARGE: Cardiac Wound/Incision Care: May get incision wet, No wound care needed CERTIFICATION STATEMENT: Certification Statement: Certification Statement: Based on the above finding, I certify that this patient is confined to the home and needs intermittent senior care care, physical therapy and/or speech therapy, or continues to need occupational therapy.~ This patient is under my care, and I have initiated the establishment of the plan of care.~ This patient will be followed by myself or a community physician who will periodically review the plan of care. Home Meds Active Scripts Lisinopril (LISINOPRIL) 5 Mg Tablet, 2.5 MG PO BID for BLOOD PRESSURE for 30 Days, #30 TAB Prov:LILLY WOLFE MD 09/08/18 Amlodipine Besylate (AMLODIPINE BESYLATE) 5 Mg Tablet, 5 MG PO DAILY for BLOOD PRESSURE for 30 Days, #30 TAB Prov:LILLY WOLFE MD 09/08/18 Warfarin Sodium (COUMADIN) 10 Mg Tablet, 1 EACH MC PRN DAILY PRN for SEE COMMENTS for 28 Days, #30 TAB Prov:LILLY WOLFE MD 09/08/18 LILLY WOLFE MD Sep 08, 2018 15:35
--- NOTE | 2018-09-08 15:39 | NUR ---
SS following up with discharge planning. Discharge orders received for home healthcare. SS phoned and faxed discharge orders to [facility], ; fax [phone]. Pt's RN notified.
[2018-09-08] MEDS ORDERED: WARFARIN 4 MG TABLET. PO ONE (16:00)
--- NOTE | 2018-09-08 16:54 | NUR ---
Patient given 4 mg Warfarin prior to dischrage per Dr. Spencer. Patient not given the whole dose of [address] Spencer. Roopa with [facility] notified of dose given as well as the patient needs to be checked the next 4 days with her INR. Pt educated and scripts faxed to [facility] and confirmation received.
[2018-09-10] MEDS ORDERED: APIXABAN 5 MG TABLET. PO SCH (09:00)
== END 2018-09-08 19:19 | disposition home health service (06) | DRG 871 ==
LOC: ER 19:37 → 2 NORTH 20:43
PROVIDERS: ADMIT Family Medicine; ATTEND Family Medicine
DX: A41.9 Sepsis, unspecified organism (principal); I26.99 Other pulmonary embolism without acute cor pulmonale; J96.01 Acute respiratory failure with hypoxia; I82.431 Acute embolism and thrombosis of right popliteal vein; Z68.42 Body mass index [BMI] 45.0-49.9, adult; N39.0 Urinary tract infection, site not specified; F41.9 Anxiety disorder, unspecified; G47.33 Obstructive sleep apnea (adult) (pediatric); M19.90 Unspecified osteoarthritis, unspecified site; E66.01 Morbid (severe) obesity due to excess calories; E78.00 Pure hypercholesterolemia, unspecified; E78.5 Hyperlipidemia, unspecified; I11.9 Hypertensive heart disease without heart failure; J43.9 Emphysema, unspecified; Z82.49 Family history of ischemic heart disease and other diseases of the circulatory system; Z86.711 Personal history of pulmonary embolism; Z86.718 Personal history of other venous thrombosis and embolism; Z90.710 Acquired absence of both cervix and uterus; Z79.899 Other long term (current) drug therapy
CPT/HCPCS: 36415; 71275; 76700; 80048; 80053; 81001; 82565; 83880; 84484; 84520; 85025; 85379; 85520; 85610; 87086; 87186; 93005; 93970; 96372; J0360; J1650; J1956; 99285-25